=== PATIENT | male | born 1960 | race Caucasian/White ===

== ENCOUNTER 2016-07-02 09:04 | Inpatient (IN) | payer OTHER ==
[~2016-07-02] VITALS: Ht 180.3 cm; Wt 85.0 kg
[2016-07-02] VITALS (12 sets, daily range): BP systolic 74–147; BP diastolic 52–97; PULSE 87–118; RESP 15–20; TEMP 97.6–97.7; O2SAT 96–100
[~2016-07-02 09:04] MED LIST: ARTIDRO EACH EYE; CLON1 PO; DULE100A INH; GABA300C3 PO; KCL20 PO; MAGN400T PO; PRAV20TA PO; PROT40TA PO; SERO300T PO; SYNT125T PO; VENTAER INH
[2016-07-02 09:31] LABS: AUTOMATED NEUTROPHIL # 3.2 TH/MM3 (1.8-7.7); BASOPHIL # 0.1 TH/MM3 (0-0.2); BASOPHIL % 1.2 % (0.0-2.0); EOSINOPHIL # 0.2 TH/MM3 (0-0.4); EOSINOPHIL % 2.5 % (0.0-4.0); HEMATOCRIT 36.9 % (39.0-51.0); LYMPH % 52.7 % (9.0-44.0); LYMPHOCYTE # 5.1 TH/MM3 (1.0-4.8); MEAN CELL VOLUME 109.6 FL (80.0-100.0); MEAN CORPUSCULAR HEMOGLOBIN 37.9 PG (27.0-34.0); MEAN CORPUSCULAR HGB CONC 34.6 % (32.0-36.0); MONO % 10.3 % (0.0-8.0); NEUT % 33.3 % (16.0-70.0); PLATELET COUNT 233 TH/MM3 (150-450); RED BLOOD COUNT 3.37 MIL/MM3 (4.50-5.90); RED CELL DISTRIBUTION WIDTH 15.8 % (11.6-17.2); WHITE BLOOD COUNT 9.7 TH/MM3 (4.0-11.0)
[2016-07-02 09:39] LABS: HEMO FLAGS AUTO DIFF
--- NOTE | 2016-07-02 09:56 | RADRPT ---
EXAM DATE/TIME: 07/02/2016 09:29 [facility] COMPARISON: CHEST SINGLE AP, November 08, 2015, 14:31. INDICATIONS : Syncopal episode. Patient states he has fainted several times in the last several day. MEDICAL HISTORY : Asthma. SURGICAL HISTORY : None. ENCOUNTER: Initial ACUITY: 3 days PAIN SCORE: 0/10 LOCATION: Bilateral chest FINDINGS: A single view of the chest demonstrates no focal consolidation. Minimal linear atelectasis or scarrin g at the bases. Tortuous aorta. Normal heart size. No pneumothorax. CONCLUSION: 1. Minimal linear scarring or atelectasis at the lung bases. Exam otherwise unremarkable. Sarwat Soliman MD on July 02, 2016 at 9:53 Board Certified Radiologist. This report was verified electronically.
[2016-07-02 09:58] LABS: ANION GAP 21 MEQ/L (5-15); BICARBONATE 15.8 MEQ/L (21.0-32.0); BLOOD UREA NITROGEN 10 MG/DL (7-18); CHLORIDE 99 MEQ/L (98-107); CREATINE KINASE 131 U/L (39-308); GLOMERULAR FILTRATION RATE 68 ML/MIN (>89); SODIUM (NA) 136 MEQ/L (136-145)
[2016-07-02 10:01] LABS: POTASSIUM 2.9 MEQ/L (3.5-5.1)
[2016-07-02 10:10] LABS: BANDS 1 % (0-6); BASOPHILS 2 % (0-2); EOSINOPHILS 1 % (0-4); MYELOCYTES 1 % (0-0); PLATELET ESTIMATE SMEAR NORMAL (NORMAL); POLYS (SEG NEUTROPHILS) 39 % (16-70); SCAN/DIFF FINAL DIFF MANUAL; WBC DIFF SAMPLE 100
[2016-07-02 10:11] LABS: PLATELET MORPHOLOGY NORMAL (NORMAL)
[2016-07-02 10:22] LABS: CKMB 1.1 NG/ML (0.5-3.6)
[2016-07-02] MEDS ORDERED: SODIUM CHLOR 0.9% 1000 ML INJ 1,000 ML IV ONE ×3 (10:45→16:15)
--- NOTE | 2016-07-02 10:45 | PD ---
HPI Chief Complaint: Chest Pain Time Seen by Provider: 10:38 Travel History International Travel<30 days: No Contact w/Intl Traveler<30days: No Traveled to known affect area: No History of Present Illness HPI The patient is a 55-year-old male who presents to the emergency department for syncope and shortness of breath. The patient has a history of multiple syncopal episodes of the last several months where he states he will stand up, become dizzy, and fall forward. The patient states he did fall for one time resulting in a laceration to the frontal forehead which required Steri- Strips. The patient does think he loses consciousness prior to falling to the ground. The patient states his symptoms are worse with standing upright, he was somewhat became dizzy, short of breath, and will have a syncopal episode. He does note his symptoms are improved at rest. The patient also states his chest will "pound "and feel like his heart is going to "jump out of my chest ". The patient denies any known history of arrhythmias, pulmonary embolism, or aortic stenosis. The patient with the [facility] earlier today who referred him to the emergency department. The patient denies any known history of coronary artery disease. The patient's symptoms are moderate, worse with standing upright and ambulating, and slightly alleviated at rest. PFSH Past Medical History Cardiovascular Problems: No High Cholesterol: Yes Diminished Hearing: No Musculoskeletal: No Neurologic: No Respiratory: Yes (ASTHMA) Thyroid Disease: Yes Social History Alcohol Use: Yes (DAILY ETOH PER PT) Tobacco Use: No Substance Use: No (PT DENIES) Allergies-Medications (Allergen,Severity, Reaction): Coded Allergies: No Known Allergies (Unverified , 07/02/16) Reported Meds & Prescriptions Reported Meds & Active Scripts Active Reported Benztropine (Benztropine Mesylate) 2 Mg Tab 2 Mg PO HS Clonazepam 1 Mg Tab 1 Mg PO DAILY Quetiapine Fumarate ER (Quetiapine Fumarate) 150 Mg Tab Milk Thistle 175 Mg Cap Gabapentin 400 Mg Cap 400 Cap PO TID Omeprazole 20 Mg Tab 20 Mg PO DAILY Levothyroxine (Levothyroxine Sodium) 125 Mcg Tab 125 Mcg PO DAILY Review of Systems Except as stated in HPI: all other systems reviewed are Neg General / Constitutional: No: Fever HENT: Positive: Lightheadedness Cardiovascular: Positive: Tachycardia, Syncope, Dyspnea on exertion, No: Chest Pain or Discomfort, Diaphoresis Respiratory: Positive: Shortness of Breath Gastrointestinal: No: Nausea, Vomiting, Abdominal Pain Musculoskeletal: No: Weakness Neurologic: Positive: Dizziness, Syncope, Tremor, No: Weakness, Change in Mentation Psychiatric: Positive: Mood Disorder Physical Exam Narrative GENERAL: Awake, alert, 55-year-old male who appears his stated age and is in no acute respiratory distress. SKIN: Warm and dry. Multiple tattoos noted. HEAD: Atraumatic. Normocephalic. EYES: Pupils equal and round. No scleral icterus. No injection or drainage. ENT: No nasal bleeding or discharge. Mucous membranes pink and moist. NECK: Trachea midline. No JVD. CARDIOVASCULAR: Regular, tachycardic with a heart rate of 110. No audible murmurs. RESPIRATORY: No accessory muscle use. Clear to auscultation. Breath sounds equal bilaterally. GASTROINTESTINAL: Abdomen soft, non-tender, nondistended. No rebound tenderness. MUSCULOSKELETAL: No obvious deformities. No clubbing. No cyanosis. No edema. NEUROLOGICAL: Awake and alert. No obvious cranial nerve deficits. Motor grossly within normal limits. Normal speech. Nonfocal. PSYCHIATRIC: Appropriate mood and affect; insight and judgment normal. Data Data Last Documented VS Vital Signs Date Time Temp Pulse Resp B/P Pulse Ox O2 Delivery O2 Flow Rate FiO2 07/02/16 11:16 106 17 130/92 98 Room Air 07/02/16 09:07 97.7 Orders Electrocardiogram (07/02/16 09:13) Complete Blood Count With Diff (07/02/16 09:13) Basic Metabolic Panel (Bmp) (07/02/16 09:13) Ckmb (Isoenzyme) Profile (07/02/16 09:13) Troponin I (07/02/16 09:13) Chest, Single Ap (07/02/16 09:13) Iv Access Insert/Monitor (07/02/16 09:13) Ecg Monitoring (07/02/16 09:13) Oxygen Administration (07/02/16 09:13) Oximetry (07/02/16 09:13) CKMB (07/02/16 09:20) CKMB% (07/02/16 09:20) Blood Gas Venous (Vbg) (07/02/16 10:38) Lactic Acid (07/02/16 10:38) Beta Hydroxybutyrate (Acetone) (07/02/16 10:38) Thyroid Stimulating Hormone (07/02/16 10:38) Free Thyroxine (T4) (07/02/16 10:38) D-Dimer (07/02/16 10:38) Orthostatic Vital Signs (07/02/16 10:38) Sodium Chlor 0.9% 1000 Ml Inj (Ns 1000 M (07/02/16 10:45) Magnesium (Mg) (07/02/16 10:38) Potassium Chlor 20 Meq Premix (Kcl 20 Me (07/02/16 10:45) Ct Pulmonary Angiogram (07/02/16 ) Sodium Chlor 0.9% 1000 Ml Inj (Ns 1000 M (07/02/16 12:00) Admit Order (Ed Use Only) (07/02/16 12:25) Labs Laboratory Tests Test 07/02/16 07/02/16 07/02/16 09:20 10:59 11:05 White Blood Count 9.7 TH/MM3 Red Blood Count 3.37 MIL/MM3 Hemoglobin 12.8 GM/DL Hematocrit 36.9 % Mean Corpuscular Volume 109.6 FL Mean Corpuscular Hemoglobin 37.9 PG Mean Corpuscular Hemoglobin 34.6 % Concent Red Cell Distribution Width 15.8 % Platelet Count 233 TH/MM3 Mean Platelet Volume 7.3 FL Neutrophils (%) (Auto) 33.3 % Lymphocytes (%) (Auto) 52.7 % Monocytes (%) (Auto) 10.3 % Eosinophils (%) (Auto) 2.5 % Basophils (%) (Auto) 1.2 % Neutrophils # (Auto) 3.2 TH/MM3 Lymphocytes # (Auto) 5.1 TH/MM3 Monocytes # (Auto) 1.0 TH/MM3 Eosinophils # (Auto) 0.2 TH/MM3 Basophils # (Auto) 0.1 TH/MM3 CBC Comment AUTO DIFF Differential Total Cells 100 Counted Neutrophils % (Manual) 39 % Band Neutrophils % 1 % Lymphocytes % 52 % Monocytes % 4 % Eosinophils % 1 % Basophils % 2 % Neutrophils # (Manual) 4.0 TH/MM3 Myelocytes 1 % Differential Comment FINAL DIFF MANUAL Platelet Estimate NORMAL Platelet Morphology Comment NORMAL Red Cell Morphology Comment NORMAL Sodium Level 136 MEQ/L Potassium Level 2.9 MEQ/L Chloride Level 99 MEQ/L Carbon Dioxide Level 15.8 MEQ/L Anion Gap 21 MEQ/L Blood Urea Nitrogen 10 MG/DL Creatinine 1.13 MG/DL Estimat Glomerular Filtration 68 ML/MIN Rate Random Glucose 71 MG/DL Calcium Level 8.8 MG/DL Total Creatine Kinase 131 U/L Creatine Kinase MB 1.1 NG/ML Creatine Kinase MB % 0.8 % Troponin I LESS THAN 0.02 NG/ML Blood Gas Puncture Site NURSE Blood Gas Patient Temperature 98.6 Venous Blood pH 7.38 Venous Blood Partial Pressure 32 mmHg CO2 Venous Blood Partial Pressure 22 mmHg O2 Venous Blood HCO3 18 mmol/L Venous Blood Oxygen Saturation 31 % Venous Blood Oxygen Content 6.0 Vol % Venous Blood Base Excess -5.8 mmol/L Blood Gas Inspired Oxygen 21 % D-Dimer Quantitative (PE/DVT) 2.30 MG/L FEU Lactic Acid Level 4.6 mmol/L Magnesium Level 1.5 MG/DL Free Thyroxine 0.69 NG/DL Thyroid Stimulating Hormone 27.200 uIU/ML 3rd Gen B-Hydroxybutyrate 3.68 MMOL/L MDM Medical Decision Making Medical Screen Exam Complete: Yes Emergency Medical Condition: Yes Medical Record Reviewed: Yes Interpretation(s) Laboratory Tests Test 07/02/16 07/02/16 07/02/16 09:20 10:59 11:05 White Blood Count 9.7 TH/MM3 Red Blood Count 3.37 MIL/MM3 Hemoglobin 12.8 GM/DL Hematocrit 36.9 % Mean Corpuscular Volume 109.6 FL Mean Corpuscular Hemoglobin 37.9 PG Mean Corpuscular Hemoglobin 34.6 % Concent Red Cell Distribution Width 15.8 % Platelet Count 233 TH/MM3 Mean Platelet Volume 7.3 FL Neutrophils (%) (Auto) 33.3 % Lymphocytes (%) (Auto) 52.7 % Monocytes (%) (Auto) 10.3 % Eosinophils (%) (Auto) 2.5 % Basophils (%) (Auto) 1.2 % Neutrophils # (Auto) 3.2 TH/MM3 Lymphocytes # (Auto) 5.1 TH/MM3 Monocytes # (Auto) 1.0 TH/MM3 Eosinophils # (Auto) 0.2 TH/MM3 Basophils # (Auto) 0.1 TH/MM3 CBC Comment AUTO DIFF Differential Total Cells 100 Counted Neutrophils % (Manual) 39 % Band Neutrophils % 1 % Lymphocytes % 52 % Monocytes % 4 % Eosinophils % 1 % Basophils % 2 % Neutrophils # (Manual) 4.0 TH/MM3 Myelocytes 1 % Differential Comment FINAL DIFF MANUAL Platelet Estimate NORMAL Platelet Morphology Comment NORMAL Red Cell Morphology Comment NORMAL Sodium Level 136 MEQ/L Potassium Level 2.9 MEQ/L Chloride Level 99 MEQ/L Carbon Dioxide Level 15.8 MEQ/L Anion Gap 21 MEQ/L Blood Urea Nitrogen 10 MG/DL Creatinine 1.13 MG/DL Estimat Glomerular Filtration 68 ML/MIN Rate Random Glucose 71 MG/DL Calcium Level 8.8 MG/DL Total Creatine Kinase 131 U/L Creatine Kinase MB 1.1 NG/ML Creatine Kinase MB % 0.8 % Troponin I LESS THAN 0.02 NG/ML Blood Gas Puncture Site NURSE Blood Gas Patient Temperature 98.6 Venous Blood pH 7.38 Venous Blood Partial Pressure 32 mmHg CO2 Venous Blood Partial Pressure 22 mmHg O2 Venous Blood HCO3 18 mmol/L Venous Blood Oxygen Saturation 31 % Venous Blood Oxygen Content 6.0 Vol % Venous Blood Base Excess -5.8 mmol/L Blood Gas Inspired Oxygen 21 % D-Dimer Quantitative (PE/DVT) 2.30 MG/L FEU Lactic Acid Level 4.6 mmol/L Magnesium Level 1.5 MG/DL Free Thyroxine 0.69 NG/DL Thyroid Stimulating Hormone 27.200 uIU/ML 3rd Gen B-Hydroxybutyrate 3.68 MMOL/L Last Impressions Chest X-Ray 07/02/16 0913 Signed Impressions: Service Date/Time: Saturday, July 02, 2016 09:29 - CONCLUSION: 1. Minimal linear scarring or atelectasis at the lung bases. Exam otherwise unremarkable. Sarwat Soliman MD CT Angiography 07/02/16 0000 Signed Impressions: Service Date/Time: Saturday, July 02, 2016 12:26 - CONCLUSION: 1. No pulmonary embolus identified. 2. There is an area of linear atelectasis or scarring at the right lung base. Devon Ramachandran MD Differential Diagnosis Differential diagnosis includes arrhythmia, aortic stenosis, vasovagal syncope, orthostatic hypotension, dehydration, pulmonary embolism. Narrative Course IV was established, labs are drawn and sent, and the patient was placed on cardiac telemetry monitoring and continuous pulse oximetry monitoring. The patient was noted be tachycardic, no hypoxia, however, does have shortness of breath is worse with exertion. Therefore, d-dimer was sent to lab. EKG was ordered and interpreted. Chest x-ray was ordered. Chest x-ray was unremarkable. Orthostatic vital signs were obtained and the patient was administered 1 L of IV fluids. The patient had an anion gap on basic metabolic profile with low CO2, therefore, lactic acid and beta hydroxy were sent to lab. VBG was obtained. The ABG reveals no obvious acidosis. Patient's orthostatics were positive. D-dimer is positive for greater than 2, therefore, CT pulmonary angiogram was ordered. The patient's lactic acid is elevated at 4.6. TSH is greater than 22 with a low free T4, consistent with hypothyroidism. Patient's beta hydroxy is positive just greater than 3, however , I do not suspect DKA. Patient's primary physician is the [facility], therefore , the on-call medical service, the residents, were paged for admission 11:[address] pulmonary angiogram was negative for PE. Patient's orthostatics are positive, the patient was ordered a second liter of IV fluids. The patient will be admitted. Physician Communication Physician Communication The on-call medical service was paged for admission. I discussed the patient with the resident team who agreed with admission to Dr. Liang. Diagnosis Primary Impression: Syncope Qualified Code: R55 - Syncope, unspecified syncope type Additional Impressions: Orthostatic hypotension Hypothyroidism Qualified Code: E03.9 - Hypothyroidism, unspecified type Lactic acidosis Admitting Information Admitting Physician Requests: Admit Condition: Stable Blanco Alejo MD Jul 02, 2016 10:45
[2016-07-02 11:08] LABS: BLOOD GAS VENOUS BASE EXCESS -5.8 mmol/L (-2-2); BLOOD GAS VENOUS HCO3 18 mmol/L (22-26); BLOOD GAS VENOUS O2 HGB SAT 31 % (70-76); BLOOD GAS VENOUS PCO2 32 mmHg (44-48); BLOOD GAS VENOUS pH 7.38 (7.360-7.400); TEMP CORR TO 98.6
[2016-07-02 11:09] LABS: BLOOD GAS VENOUS PO2 22 mmHg (35-40); CRITICAL VALUE YES; DRAW SITE NURSE; FIO2 21 %; STAT YES
[2016-07-02] MEDS: POTASSIUM CHLOR 20 MEQ PREMIX 100 ML IV SCH ×2 (11:39→13:40)
[2016-07-02] MEDS ORDERED: CLON1TAB PO (11:50)
[2016-07-02] MEDS ORDERED: MILK175C6 (11:50)
[2016-07-02] MEDS ORDERED: GABA400C5 PO (11:50)
[2016-07-02] MEDS ORDERED: OMEP20TA PO (11:50)
[2016-07-02] MEDS ORDERED: LEVO125T4 PO (11:50)
[2016-07-02] MEDS ORDERED: QUET-87 (11:50)
[2016-07-02] MEDS ORDERED: BENZ2TAB PO (11:51)
[2016-07-02 11:54] LABS: BETA-HYDROXYBUTYRATE 3.68 MMOL/L (0.00-0.39); FREE T4 0.69 NG/DL (0.76-1.46); MAGNESIUM 1.5 MG/DL (1.5-2.5)
--- NOTE | 2016-07-02 12:23 | EKG ---
Date Performed: 07/02/2016 Time Performed: 10:07:43 PTAGE: 55 years EKG: SINUS TACHYCARDIA ABNORMAL RHYTHM ECG PREVIOUS TRACING : 11/08/2015 14.45 DOCTOR: Owen Shah Interpretating Date/Time 07/02/2016 12:20:18
[2016-07-02] MEDS ORDERED: IOHEXOL 350 MG/ML 10 ML VIAL (for RAD DIAG) IV ONE (12:55)
--- NOTE | 2016-07-02 13:05 | RADRPT ---
EXAM DATE/TIME: 07/02/2016 12:26 [facility] COMPARISON: CT ABDOMEN & PELVIS W/O CONTRAST, November 08, 2015, 15:50. INDICATIONS : Abnormal heart rate, syncope and shortness of breath for four months IV CONTRAST: 50 cc Omnipaque 350 (iohexol) IV RADIATION DOSE: 11.73 CTDIvol (mGy) MEDICAL HISTORY : Thyroid disease SURGICAL HISTORY : None. ENCOUNTER: Initial ACUITY: 4 - 6 months PAIN SCALE: 0/10 LOCATION: chest TECHNIQUE: Volumetric scanning of the chest was performed using a pulmonary embolism protocol MIP images were re constructed. Using automated exposure control and adjustment of the mA and/or kV according to patien t size, radiation dose was kept as low as reasonably achievable to obtain optimal diagnostic quality images. FINDINGS: PULMONARY ARTERIES: No filling defects are seen in the pulmonary arteries through the segmental level. LUNGS: The examination demonstrates a moderate-sized area of linear atelectasis in the right lower lobe. The pulmonary parenchyma is otherwise clear. PLEURAE: There is no pleural thickening or pleural effusion. MEDIASTINUM: There is good visualization of the great vessels of the middle mediastinum. No evidence of mediastin al or hilar adenopathy/mass. MUSCULOSKELETAL: Within normal limits for patient age. MISCELLANEOUS: The visualized upper abdominal organs demonstrate no acute abnormality. CONCLUSION: 1. No pulmonary embolus identified. 2. There is an area of linear atelectasis or scarring at the right lung base. Devon Ramachandran MD on July 02, 2016 at 13:01 Board Certified Radiologist. This report was verified electronically.
--- NOTE | 2016-07-02 14:02 | HHI.HP ---
[facility] Service Family Medicine Primary Care Physician [facility] Admission Diagnosis syncope, metabolic acidosis, orthostatic hypotension Diagnoses: International Travel<30 Days: No Contact w/Intl Traveler<30days: No Known Affected Area: No History of Present Illness Mr. Dhaliwal is a 55 yo M with PMH of psychiatric disease (bipolar disorder, PTSD , hypothyroidism, "tremor" (presumably lithium induced) who presents with several months of worsening shortness of breath with exertion, dizziness and rapid heart rate upon standing from a sitting position, and weakness. Patient reports that the symptoms have been gradually worsening over the past 4 months, and that he was advised to seek further workup by [facility] so presented to [facility] today. Patient reports 1 episode of prior syncope several years [or months per ED documentation; will clarify with patient] prior where he fell shortly after standing at his bedside, resulting in him lacerating his forehead on countertop. Patient did not report any cerebral disease from this fall. Patient is not aware of any prior cardiac disease, and states that he had his last echo approximately 1 year ago (patient does not report knowing results). Patient reports that his dizziness and fast heart rate occur when standing. Patient reports significant shortness of breath when walking; having to rest every few steps and walking up the stairs. Patient feels that his gait is abnormal and walking and that he has increased weakness in his lower extremities. Patient states that he does not feel this weakness when lying supine in bed. Patient also reports losing 10 lbs due to lack of oral intake over the past month. Patient reports taking frequently; as much as 6 drinks every other night. No reported recent illnesses, fevers/chills, nasuea, constipation/diarrhea, dysuria, or chest pain. Patient states he may have had prior seizure vs tremor. Regarding patient's tremor, he states that he previously took lithium ~2 years prior; patient reports shaking started after this. Interval History: Patient to have positive orthostatics in ED; placed on IV fluids. BMP with elevated anion gap and low CO2; ABG demonstrative of low CO2 (32)/HCO3 (18) and normal pH (7.38). TSH (27.2) elevated and T4 low (0.69); lactic acid 4.6, B hydroxybutyrate mildly elevated. Patient tachycardic; CTA obtained but found to be negative. (Ross Leos MD R2) Review of Systems Endocrine: DENIES: Polyuria Respiratory: COMPLAINS OF: Shortness of breath, DENIES: Cough Cardiovascular: COMPLAINS OF: Palpitations, DENIES: Chest pain Gastrointestinal: DENIES: Constipation, Diarrhea Genitourinary: DENIES: Dysuria Musculoskeletal: COMPLAINS OF: Joint pain (less active) Integumentary: DENIES: Pruritus Hematologic/lymphatic: DENIES: Bruising Neurologic: COMPLAINS OF: Abnormal gait, Tremor, DENIES: Headache Psychiatric: DENIES: Anxiety, Confusion (Ross Leos MD R2) Past Family Social History Past Medical History Patient reports receiving healthcare at [place]: "tremor" (presumably [place] induced) asthma- not significant per patient Bipolar disorder PTSD Hypothyroidism prior seizures vs. tremors Past Surgical History L trigger finger release L eye trauma R thumb tendon release Reported Medications Per patient med rec: trazodone, clonazepam, benztropine, Seroquel 450mg at night , levothyroxine 0.125, milk thistle, omeprazole 20mg, gabapentin Reported Meds & Active Scripts Active Reported Benztropine (Benztropine Mesylate) 2 Mg Tab 2 Mg PO HS Clonazepam 1 Mg Tab 1 Mg PO DAILY Quetiapine Fumarate ER (Quetiapine Fumarate) 150 Mg Tab Milk Thistle 175 Mg Cap Gabapentin 400 Mg Cap 400 Cap PO TID Omeprazole 20 Mg Tab 20 Mg PO DAILY Levothyroxine (Levothyroxine Sodium) 125 Mcg Tab 125 Mcg PO DAILY (Ross Leos MD R2) Allergies: Coded Allergies: No Known Allergies (Unverified , 07/02/16) Family History mother- unspecified CAD Social History Lives alone; 3[address] story apt. No smoking for ~20 years Alcohol: Inconsistent intake reported to multiple providers; patient reported 1- 2 drinks a night to ~6 drinks every other night Illicit drugs: None reported (Ross Leos MD R2) Physical Exam Vital Signs Vital Signs Date Time Temp Pulse Resp B/P Pulse Ox O2 Delivery O2 Flow Rate FiO2 07/02/16 11:16 106 17 130/92 98 Room Air 07/02/16 10:45 99 17 130/82 105 18 122/84 105 20 78/52 20 74/54 07/02/16 10:41 103 17 98 Room Air 07/02/16 10:39 96 18 147/97 98 Room Air 07/02/16 10:39 99 Room Air 07/02/16 10:37 98 Room Air 07/02/16 09:07 97.7 118 18 109/80 97 Room Air Physical Exam GENERAL: Patient appears comfortable, in no acute distress. SKIN: Warm and dry, no rashes appreciated EYES: No scleral icterus, injection, or drainage. PERRLA. EOMI. HENT: Head: Normocephalic. Mouth: No lesions appreciated. Pharynx: Benign exam without erythema or exudate. NECK: No appreciated lymphadenopathy or thyromegaly CARDIOVASCULAR: Mild tachycardia; regular rhythm without murmurs. Normal peripheral perfusion in lower extremities. RESPIRATORY: Normal respiratory rate. Lungs clear to auscultation bilaterally. GASTROINTESTINAL: Abdomen soft, nondistended, nontender. Bowel sounds normal. MUSCULOSKELETAL: No lower extremity swelling. No appreciated calf asymmetry. NEURO/PSYCH: Awake, alert, and oriented. Cranial nerves intact. Normal sensory function peripherally; normal strength bilaterally. Cerebellar testing (Finger/ nose and heel/rai) testing normal. Gait not inspected. Laboratory Laboratory Tests Test 07/02/16 07/02/16 07/02/16 09:20 10:59 11:05 White Blood Count 9.7 Red Blood Count 3.37 Hemoglobin 12.8 Hematocrit 36.9 Mean Corpuscular Volume 109.6 Mean Corpuscular Hemoglobin 37.9 Mean Corpuscular Hemoglobin 34.6 Concent Red Cell Distribution Width 15.8 Platelet Count 233 Mean Platelet Volume 7.3 Neutrophils (%) (Auto) 33.3 Lymphocytes (%) (Auto) 52.7 Monocytes (%) (Auto) 10.3 Eosinophils (%) (Auto) 2.5 Basophils (%) (Auto) 1.2 Neutrophils # (Auto) 3.2 Lymphocytes # (Auto) 5.1 Monocytes # (Auto) 1.0 Eosinophils # (Auto) 0.2 Basophils # (Auto) 0.1 CBC Comment AUTO DIFF Differential Total Cells 100 Counted Neutrophils % (Manual) 39 Band Neutrophils % 1 Lymphocytes % 52 Monocytes % 4 Eosinophils % 1 Basophils % 2 Neutrophils # (Manual) 4.0 Myelocytes 1 Differential Comment FINAL DIFF MANUAL Platelet Estimate NORMAL Platelet Morphology Comment NORMAL Red Cell Morphology Comment NORMAL Sodium Level 136 Potassium Level 2.9 Chloride Level 99 Carbon Dioxide Level 15.8 Anion Gap 21 Blood Urea Nitrogen 10 Creatinine 1.13 Estimat Glomerular Filtration 68 Rate Random Glucose 71 Calcium Level 8.8 Total Creatine Kinase 131 Creatine Kinase MB 1.1 Creatine Kinase MB % 0.8 Troponin I LESS THAN 0.02 Blood Gas Puncture Site NURSE Blood Gas Patient Temperature 98.6 Venous Blood pH 7.38 Venous Blood Partial Pressure 32 CO2 Venous Blood Partial Pressure 22 O2 Venous Blood HCO3 18 Venous Blood Oxygen Saturation 31 Venous Blood Oxygen Content 6.0 Venous Blood Base Excess -5.8 Blood Gas Inspired Oxygen 21 D-Dimer Quantitative (PE/DVT) 2.30 Lactic Acid Level 4.6 Magnesium Level 1.5 Free Thyroxine 0.69 Thyroid Stimulating Hormone 27.200 3rd Gen B-Hydroxybutyrate 3.68 (Ross Leos MD R2) Result Diagram: 07/02/1620 07/02/16919 Imaging Last Impressions Chest X-Ray 07/02/16912 Signed Impressions: Service Date/Time: Saturday, July 02, 2016 09:29 - CONCLUSION: 1. Minimal linear scarring or atelectasis at the lung bases. Exam otherwise unremarkable. Sarwat Soliman MD CT Angiography 07/02/16 0000 Signed Impressions: Service Date/Time: Saturday, July 02, 2016 12:26 - CONCLUSION: 1. No pulmonary embolus identified. 2. There is an area of linear atelectasis or scarring at the right lung base. Devon Ramachandran MD (Ross Leos MD R2) Assessment and Plan Assessment and Plan Mr. Dhaliwal is a 55 yo male with: Code Status Full Code (Ross Leos MD R2) Attending Attestation The patient has been seen and examined. The chart and all resident notes have been reviewed. I agree that inpatient care is appropriate and that a two midnight stay is expected for the reasons documented in the resident history and physical. I have discussed this with the resident and certify the resident s order for inpatient admission. (Rona Liang MD) Problem List: (1) Shortness of breath Status: Acute Plan: Impression: Several months of worsening shortness of breath on exertion. Mild anemia (Hgb 12.8) Positive orthostatic vitals in ED. Lungs clear to auscultation; saturating normal on room air D-dimer 2.3; CTA did not show PE We'll check echocardiography to assess cardiac output Continue to monitor vitals, O2 sats (2) Metabolic acidosis, increased anion gap (IAG) Status: Acute Plan: Impression: Unclear etiology. Patient with history of alcohol consumption ; no known diabetes. Anion gap 21 on admission; CO2 15.8. VBG on admission: pH 7.38, CO2 32, HCO3 18 Lactic acid 4.6 on admission B hydroxybutyrate 3.68 -Will check ABG- pH 7.44, CO2 27, HCO3 18 -Will check plasma osmolality- 289 -Will trend lactic acid- 1.4 on repeat check -Check for potential affecting metabolites- Aspirin 5.7, Ethyl alcohol 33, Acetaminophen <2. -Since resolving, will continue IV fluid supplementation and monitor (3) Alcohol abuse Status: Chronic Plan: Impression: Chronic alcohol use; unclear total usage since history per patient seems to have varied MCV 109.6; patient reports poor nutrition -[facility] protocol -Electrolyte replacement -Will check B12, folate, thiamine levels (4) Orthostatic hypotension Status: Acute Plan: Impression: Unclear etiology. Orthostatic vitals in ED: Supine 130/82, standing 78/52 No known peripheral/autonomic neuropathy risk factors Patient on Seroquel and Trazodone -Continue IV fluid supplementation at maintenance NS -s/p3 L NS boluses -Hold potentially affecting medications -Hold home Seroquel -Consider changing Trazodone since also could be a factor -Continue to monitor orthostatic VS -Based on responsiveness, will consider Fludrocortisone and/or Midodrine -Since remote history of syncope, will also check Carotid US (5) Psychiatric disorder Status: Chronic Plan: Impression: Patient reports history of Bipolar disorder and PTSD; currently controlled with Seroquel, trazodone, and gabapentin. Patient reports history of lithium treatment and subsequent tremor -Continue Benztropine for tremor disorder -Continue home Trazodone -Hold home Seroquel for suspected contribution to orthostatic hypotension (6) Hypothyroidism Status: Chronic Plan: Impression: History of hypothyroidism TSH 27.2, free T4 0.69 on admission -Will increase Levothyroxine by 12.5 mcg to 137.5 mcg (7) DVT Prophylaxis Status: Acute Plan: -Bilateral SCD's -Lovenox 40mg daily (8) Fluids, Electrolytes, and Nutrition Status: Acute Plan: Fluids: Continue NS at 120ml/hr -s/p 3 L NS Electrolytes: Monitor and replete as needed Nutrition: Regular basic diet (Ross Leos MD R2) Physician Certification 2 Midnight Certification Type: Admission for Inpatient Services Order for Inpatient Services The services are ordered in accordance with Medicare regulations or non- Medicare payer requirements, as applicable. In the case of services not specified as inpatient-only, they are appropriately provided as inpatient services in accordance with the 2-midnight benchmark. Estimated LOS (days): 3 days is the estimated time the patient will need to remain in the hospital, assuming treatment plan goals are met and no additional complications. Post-Hospital Plan: Home (Ross Leos MD R2) Problem Qualifiers (1) Hypothyroidism: Qualified Code: E03.9 - Hypothyroidism, unspecified type Ross Leos MD R2 Jul 02, 2016 14:02 Rona Liang MD Jul 03, 2016 16:42
[2016-07-02] MEDS ORDERED: LORazepam 2 MG TAB PO PRN (14:45)
[2016-07-02] MEDS ORDERED: ACETAMINOPHEN 325 MG TAB PO PRN (14:45)
[2016-07-02] MEDS ORDERED: NALOXONE HCL 0.4 MG/ML AMP IV PRN (14:45)
[2016-07-02] MEDS ORDERED: SODIUM CHLORIDE 0.9% FLUSH 5 ML FLUSH FLUSH PRN (14:45)
[2016-07-02] MEDS ORDERED: LORazepam 1 MG TAB PO PRN (14:45)
[2016-07-02] MEDS ORDERED: LORazepam 2 MG/ML VIAL IV PUSH PRN ×4 (14:45)
[2016-07-02] MEDS ORDERED: ONDANSETRON HCL 4 MG/2 ML VIAL IVP PRN (14:45)
[2016-07-02] MEDS ORDERED: FLUMAZENIL 1 MG/10 ML VIAL IV PUSH PRN (14:45)
[2016-07-02 15:25] LABS: BLOOD GAS BASE EXCESS -5.4 mmol/L (-2-2); BLOOD GAS CARBOXYHEMOGLOBIN 2.1 % (0-4); BLOOD GAS HCO3 18 mmol/L (22-26); BLOOD GAS METHEMOGLOBIN 1.4 % (0-2); BLOOD GAS O2 HGB SATURATION 94 % (90-100); BLOOD GAS OXYGEN CONTENT 14.6 Vol % (12.0-20.0); BLOOD GAS PCO2 27 mmHg (38-42); BLOOD GAS PO2 80 mmHG (61-120); CRITICAL VALUE NO; DRAW SITE RT RADIAL; FIO2 21 %; NUMBER OF ARTERIAL PUNCTURES 1; OXYGEN DEVICE R; STAT NO; TEMP CORR TO 98.6; ULNAR PULSE PRESENT
[2016-07-02 15:50] LABS: ACETAMINOPHEN LESS THAN 2.0 MCG/ML (10.0-30.0)
[2016-07-02 16:27] LABS: BICARBONATE 20.7 MEQ/L (21.0-32.0); POTASSIUM 3.3 MEQ/L (3.5-5.1)
--- NOTE | 2016-07-02 16:29 | HHI.FPPN ---
Subjective Subjective Patient seen and examined. Case discussed and reviewed. Please refer to resident H&P for further details regarding HPI, ROS, PMH, SurgHx , Fh and SocHx. In summary, patient is a 55yoM presenting for progressively more frequent syncopal episodes. This happens every time he tries to get up, now multiple times per day. He had an episode earlier today prior to presentation. He notes a racing heart and has to catch his breath prior to these episodes. NO chest pain, no urinary incontinence, tongue biting. He reports feeling normal at rest or sitting. [facility] Objective Objective Last Impressions Chest X-Ray 07/02/16 0913 Signed Impressions: Service Date/Time: Saturday, July 02, 2016 09:29 - CONCLUSION: 1. Minimal linear scarring or atelectasis at the lung bases. Exam otherwise unremarkable. Sarwat Soliman MD CT Angiography 07/02/16 0000 Signed Impressions: Service Date/Time: Saturday, July 02, 2016 12:26 - CONCLUSION: 1. No pulmonary embolus identified. 2. There is an area of linear atelectasis or scarring at the right lung base. Devon Ramachandran MD Laboratory Tests - Abnormals Test 07/02/16 07/02/16 07/02/16 07/02/16 09:20 10:59 11:05 15:20 Red Blood Count 3.37 MIL/MM3 Hemoglobin 12.8 GM/DL Hematocrit 36.9 % Mean Corpuscular Volume 109.6 FL Mean Corpuscular Hemoglobin 37.9 PG Lymphocytes (%) (Auto) 52.7 % Monocytes (%) (Auto) 10.3 % Lymphocytes # (Auto) 5.1 TH/MM3 Monocytes # (Auto) 1.0 TH/MM3 Lymphocytes % 52 % Myelocytes 1 % Potassium Level 2.9 MEQ/L Carbon Dioxide Level 15.8 MEQ/L Anion Gap 21 MEQ/L Estimat Glomerular Filtration 68 ML/MIN Rate Random Glucose 71 MG/DL Troponin I LESS THAN 0.02 NG/ML Venous Blood Partial Pressure 32 mmHg CO2 Venous Blood Partial Pressure 22 mmHg O2 Venous Blood HCO3 18 mmol/L Venous Blood Oxygen Saturation 31 % Venous Blood Oxygen Content 6.0 Vol % Venous Blood Base Excess -5.8 mmol/L D-Dimer Quantitative (PE/DVT) 2.30 MG/L FEU Lactic Acid Level 4.6 mmol/L Free Thyroxine 0.69 NG/DL Thyroid Stimulating Hormone 27.200 uIU/ML 3rd Gen Acetaminophen Level LESS THAN 2.0 MCG/ML Ethyl Alcohol Level 33 MG/DL B-Hydroxybutyrate 3.68 MMOL/L Blood Gas HCO3 18 mmol/L Blood Gas Base Excess -5.4 mmol/L Arterial Blood pH 7.44 Arterial Blood Partial 27 mmHg Pressure CO2 Blood Gas Hemoglobin 11.0 G/DL Vital Signs 07/02/16 07/02/16 07/02/16 07/02/16 09:07 10:37 10:39 10:39 Temp 97.7 Pulse 118 96 Resp 18 18 B/P 109/80 147/97 Pulse Ox 97 98 99 98 O2 Delivery Room Air Room Air Room Air Room Air 07/02/16 07/02/16 07/02/16 07/02/16 10:41 10:45 11:16 14:09 Pulse 103 99 106 102 105 105 Resp 17 17 17 18 18 20 20 B/P 130/82 130/92 113/82 122/84 78/52 74/54 Pulse Ox 98 98 99 O2 Delivery Room Air Room Air Room Air 07/02/16 16:04 Pulse 98 Resp 17 B/P 98/68 Pulse Ox 96 O2 Delivery Room Air Physical exam GENERAL: wdwn male, lying in bed, NAD SKIN: Warm and dry. No rashes or lesions HEAD: Normocephalic. AT EYES: No scleral icterus. No injection or drainage. ENT: OP clear. MMM. No evidence of tongue biting, buccal mucosal damage NECK: Supple, trachea midline. No JVD or lymphadenopathy. CARDIOVASCULAR: Tachycardic rate and regular rhythm without audible murmurs, gallops, or rubs. RESPIRATORY: Breath sounds equal and clear to auscultation bilaterally. No accessory muscle use. GASTROINTESTINAL: Abdomen soft, non-tender, nondistended. No rebound. Normal active BS MUSCULOSKELETAL: No cyanosis, or edema. No calf tenderness. BACK: Nontender without obvious deformity. No CVA tenderness. NEURO: Awake and alert. Normal speech. Motor and sensation intact and equal bilaterally. Assessment Assessment 55yoM admitted with: Lactic acidosis with anion gap Severe hypokalemia Severe Orthostatic hypotension Tachycardia Hypothyroidism, severe Bipolar disorder Anxiety Tremor PTSD Insomnia PLAN PLAN Serial orthostatic VS q shift IVF resuscitation Carotid ultrasound 2D echo Trend BMP, lactic acid Replete electrolytes as needed Hold quetiapine as possible culprit PT consult Resume other home meds as appropriate Consider neuro consult pending preliminary results Patient seen and examined. Case reviewed and discussed Agree with plan of care as discussed with me and documented in the resident note. Rona Liang MD Jul 02, 2016 16:29
[2016-07-02] MEDS: FOLIC ACID 1 MG TAB PO SCH (16:39)
[2016-07-02] MEDS: THIAMINE HCL 100 MG TAB PO SCH (16:39)
[2016-07-02] MEDS: SODIUM CHLOR 0.9% 1000 ML INJ 1,000 ML IV SCH ×2 (16:40→23:29)
[2016-07-02] MEDS: SODIUM CHLORIDE 0.9% FLUSH 5 ML FLUSH FLUSH SCH (21:00)
[2016-07-02] MEDS: GABAPENTIN 400 MG CAP PO SCH (22:02)
[2016-07-02] MEDS: ENOXAPARIN SODIUM 40 MG/0.4 ML SYRINGE SQ SCH (22:03)
[2016-07-02 23:00] LABS: AMPHETAMINE, URINE NEG (NEG); BARBITURATES, URINE NEG (NEG); COCAINE, URINE NEG (NEG)
[2016-07-02 23:01] LABS: BLOOD, URINE NEG (NEG); COMMENT (UR) CULT NOT INDICATED; CULTURE IF INDICATED CULT NOT INDICATED; GLUCOSE,URINE NEG (NEG); KETONE, URINE 80 mg/dL (NEG); MUCUS URINE FEW /lpf (OCC); NITRITE,URINE NEG (NEG); PH, URINE 6.5 (5.0-8.5); SQUAMOUS EPITHELIAL CELL URINE <1 /hpf (0-5); URINE COLOR YELLOW (YELLW/STRAW)
[2016-07-02] MEDS: clonazePAM 1 MG TAB PO PRN (23:34)
[2016-07-03] VITALS (13 sets, daily range): BP systolic 79–153; BP diastolic 51–89; PULSE 72–95; RESP 15–20; TEMP 96.8–98.3; O2SAT 94–100
[2016-07-03] MEDS: SODIUM CHLOR 0.9% 1000 ML INJ 1,000 ML IV SCH ×2 (03:55→16:02)
[2016-07-03 04:35] LABS: AUTOMATED NEUTROPHIL # 3.2 TH/MM3 (1.8-7.7); BASOPHIL # 0.1 TH/MM3 (0-0.2); EOSINOPHIL # 0.1 TH/MM3 (0-0.4); HEMATOCRIT 31.8 % (39.0-51.0); HEMO FLAGS DIFF FINAL; LYMPHOCYTE # 2.1 TH/MM3 (1.0-4.8); MEAN CELL VOLUME 109.5 FL (80.0-100.0); MEAN CORPUSCULAR HEMOGLOBIN 38.5 PG (27.0-34.0); MEAN CORPUSCULAR HGB CONC 35.2 % (32.0-36.0); MONO % 9.9 % (0.0-8.0); NEUT % 53.1 % (16.0-70.0); PLATELET COUNT 198 TH/MM3 (150-450)
[2016-07-03] MEDS ORDERED: LEVOTHYROXINE SODIUM 125 MCG TAB PO SCH ×2 (06:00)
[2016-07-03] MEDS ORDERED: POTASSIUM CHLORIDE 10 MEQ CONTROLLED RELEASE TAB PO ONE ×2 (08:00→09:30)
[2016-07-03] MEDS: LEVOTHYROXINE SODIUM 112 MCG TAB PO SCH (08:24)
[2016-07-03] MEDS: LEVOTHYROXINE SODIUM 25 MCG TAB PO SCH (08:24)
[2016-07-03] MEDS: SODIUM CHLORIDE 0.9% FLUSH 5 ML FLUSH FLUSH SCH ×2 (09:00→22:40)
[2016-07-03] MEDS: GABAPENTIN 400 MG CAP PO SCH ×3 (09:04→18:32)
[2016-07-03] MEDS: FOLIC ACID 1 MG TAB PO SCH (09:04)
[2016-07-03] MEDS: PANTOPRAZOLE SOD 20 MG DELAYED RELEASE TAB PO SCH (09:04)
[2016-07-03] MEDS: THIAMINE HCL 100 MG TAB PO SCH (09:05)
[2016-07-03] MEDS: MULTIVITAMIN TAB PO SCH (09:24)
[2016-07-03] MEDS: MAGNESIUM SULFATE 1 GM PREMIX 100 ML IV SCH ×2 (11:06→11:28)
--- NOTE | 2016-07-03 11:38 | EKG ---
Date Performed: 07/03/2016 Time Performed: 10:10:59 PTAGE: 55 years EKG: Sinus rhythm NO SIGNIFICANT CHANGE FROM PRIOR ELECTROCARDIOGRAM. PREVIOUS TRACING : 07/02/2016 10.07 DOCTOR: Manoj Terrell Interpretating Date/Time 07/03/2016 11:37:26
--- NOTE | 2016-07-03 12:25 | RADRPT ---
EXAM DATE/TIME: 07/03/2016 11:12 [place] COMPARISON: No previous studies available for comparison. INDICATIONS : Syncope. MEDICAL HISTORY : Hypercholesterolemia. Hypothyroidism. PTSD. Tremors. Palpitation. Asthma. Dyspnea. Bipolar. Joint p ain. SURGICAL HISTORY : Left trigger finger release. Left eye trauma. Right thumb tendon release. ENCOUNTER: Initial ACUITY: 1 day PAIN SCORE: 0/10 LOCATION: Bilateral neck PEAK SYSTOLIC VELOCITIES (cm/sec): ICA/CCA RATIO: Right: 0.9 Left: 0.7 ICA: Right: 63 Left: 54 CCA: Right: 69 Left: 79 ECA: Right: 54 Left: 69 VERTEBRAL: Right: 41 antegrade Left: 37 antegrade Elevated flow velocities and ICA/CCA ratios have been found to correlate with increased degrees of vessel stenosis, calculated as percentage of diameter relative to a normal segment of distal ICA/CCA FINDINGS: RIGHT CAROTID: No significant stenosis is visualized. The waveforms are within normal limits. LEFT CAROTID: No significant stenosis is visualized. The waveforms are within normal limits. VERTEBRAL ARTERIES: Antegrade flow is seen in both vertebral arteries. MISCELLANEOUS: None. CONCLUSION: No evidence of flow-limiting carotid stenosis. Johann Hdez MD on July 03, 2016 at 12:23 Board Certified Radiologist. This report was verified electronically.
--- NOTE | 2016-07-03 14:20 | PD.CONS ---
Provisional Diagnosis Admission Date Jul 02, 2016 at 12:29 [place] I. PTSD, bipolar disorder [place] II. Deferred [place] III. Hypertension, hypothyroidism, [place] IV. No history of PTSD) disorder [place] V. 55 History of Present Illness Service Psychiatry Consult Requested By Reason for Consult Medication adjustment Primary Care Physician [facility] HPI The patient is a 55 y/o man, domiciled along in [place], employed , single, with psychiatric history of PTSD, bipolar disorder, 3 previous psychiatric hospitalizations, previous suicide attempts, he gets his outpatient [facility] care [facility], he is on Seroquel 450 mg daily, and gabapentin 300 mg 3 times a day, medical history of hypertension, hypothyroidism, who presents with several months of worsening shortness of breath with exertion, dizziness and rapid heart rate upon standing from a sitting position, and weakness. Patient reports that the symptoms have been gradually worsening over the past 4 months, and that he was advised to seek further workup by his MD physician so presented to [facility] today. Patient has been diagnosed with orthostatic hypotension, orthostatic hypotension could be secondary to intake of Seroquel, he has been consulted to psychiatry for medication management. Chart was reviewed, case discussed with nursing in charge, no collateral information available, patient was seen in the ER. On psychiatric evaluation patient was calm and cooperative, he says that he feels much better now, he described his mood as fine, he says that he has been stable in current psychotropics, he has been fully compliant with Seroquel and psychiatric follow- ups, he denies depressive symptoms, he denies anxiety, he denies yonas, he denies perceptual disturbances, he denies suicidal or homicidal ideation, he denies visual and auditory hallucinations. She also denies recent episodes of nightmares, flashbacks, hypervigilance, avoidance. He says that once in a while he has a nightmare and flashback, but not really very often and this is under control. Patient says that he has been in Seroquel 600 mg in the past, this dose was decreased about 2 months ago, he doesn't know the reason. Patient is fully oriented, no gross cognitive impairment observed, no behavioral or mood dysregulation observed or reported. Patient reports occasional use of alcohol, denies the use of illicit drugs such as heroin, cocaine, marijuana, among others. Review of Systems Constitutional: COMPLAINS OF: Fatigue Endocrine: DENIES: Heat/cold intolerance, Polydipsia, Polyuria, Polyphagia Eyes: DENIES: Blurred vision, Diplopia, Eye inflammation, Eye pain, Vision loss , Photosensitivity, Double Vision Ears, nose, mouth, throat: DENIES: Tinnitus, Hearing loss, Vertigo, Nasal discharge, Oral lesions, Throat pain, Hoarseness, Ear Pain, Running Nose, Epistaxis, Sinus Pain, Toothache, Odynophagia Respiratory: DENIES: Apneas, Cough, Snoring, Wheezing, Hemoptysis, Sputum production, Shortness of breath Cardiovascular: COMPLAINS OF: Syncope Gastrointestinal: DENIES: Abdominal pain, Black stools, Bloody stools, Constipation, Diarrhea, Nausea, Vomiting, Difficulty Swallowing, Anorexia Musculoskeletal: DENIES: Joint pain, Muscle aches, Stiffness, Joint Swelling, Back pain, Neck pain Integumentary: DENIES: Abnormal pigmentation, Nail changes, Pruritus, Rash Hematologic/lymphatic: DENIES: Bruising, Lymphadenopathy Immunologic/allergic: DENIES: Eczema, Urticaria Neurologic: DENIES: Abnormal gait, Headache, Localized weakness, Paresthesias, Seizures, Speech Problems, Tremor, Poor Balance Psychiatric: DENIES: Anxiety, Confusion, Mood changes, Depression, Hallucinations, Agitation, Suicidal Ideation, Homicidal Ideation, Delusions Past Family Social History Coded Allergies: No Known Allergies (Unverified , 07/02/16) Reported Medications Benztropine 2 Mg Tab2 Mg PO HS #30 TAB Ref 0 07/02/16 Clonazepam 1 Mg Tab1 Mg PO DAILY #60 TAB Ref 0 07/02/16 Quetiapine Fumarate (Quetiapine Fumarate ER)150 Mg Tab 07/02/16 Milk Thistle 175 Mg Cap 07/02/16 Gabapentin 400 Mg [id number] Cap PO TID #30 CAP Ref 0 07/02/16 Omeprazole 20 Mg Tab20 Mg PO DAILY #30 TAB Ref 0 07/02/16 Levothyroxine 125 Mcg [id number] Mcg PO DAILY #30 TAB Ref 0 07/02/16 Current Medications Medications (Trade) Dose Ordered Sig/Justin Route Start Time Stop Time Status Last Admin (NS 1000 ml Inj) 1,000 ml @ 120 mls/hr Q8H20M IV 07/02/16 15:00 07/03/16 03:55 (NS Flush) 2 ml UNSCH PRN FLUSH 07/02/16 14:45 (NS Flush) 2 ml BID FLUSH 07/02/16 21:00 (Tylenol) 650 mg Q4H PRN PO 07/02/16 14:45 (Zofran Inj) 4 mg Q6H PRN IVP 07/02/16 14:45 (Narcan Inj) 0.4 mg UNSCH PRN IV 07/02/16 14:45 (Ativan) 1 mg Q4H PRN PO 07/02/16 14:45 (Ativan Inj) 1 mg Q4H PRN IV PUSH 07/02/16 14:45 07/03/16 02:00 (Ativan) 2 mg Q2H PRN PO 07/02/16 14:45 07/02/16 22:05 (Ativan Inj) 2 mg Q2H PRN IV PUSH 07/02/16 14:45 (Ativan Inj) 2 mg Q1H PRN IV PUSH 07/02/16 14:45 (Ativan Inj) 2 mg Q15M PRN IV PUSH 07/02/16 14:45 07/03/16 01:31 (Folate) 1 mg DAILY PO 07/02/16 14:45 07/07/16 14:44 07/03/16 09:04 (Vitamin B1) 100 mg DAILY PO 07/02/16 15:00 07/03/16 09:05 (Theragran) 1 tab DAILY PO 07/03/16 09:00 07/03/16 09:24 (Cogentin) 2 mg HS PO 07/03/16 21:00 (Neurontin) 400 mg TID PO 07/02/16 21:15 07/03/16 13:23 (Protonix) 20 mg DAILY PO 07/03/16 09:00 07/03/16 09:04 (KlonoPIN) 1 mg Q12HR PRN PO 07/02/16 21:15 07/02/16 23:34 (Lovenox Inj) 40 mg Q24H SQ 07/02/16 21:15 07/02/16 22:03 (Synthroid) 112 mcg DAILY@06 PO 07/03/16 06:00 07/03/16 08:24 (Synthroid) 25 mcg DAILY@06 PO 07/03/16 06:00 07/03/16 08:24 Family History He denies Social History Patient was born and raised in [place], he has been living in [place] for about 30 years, he is a war , he is service-connected, single, unemployed , 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 Patient's Strengths (min. 2) Social support, 's service-connected Physical Exam Vital Signs Vital Signs Date Time Temp Pulse Resp B/P Pulse Ox O2 Delivery O2 Flow Rate FiO2 07/03/16 13:16 90 16 105/68 98 Room Air 07/03/16 05:04 98.3 I/O 07/02/16 07/02/16 07/03/16 08:00 16:00 00:00 Intake Total 480 ml Balance 480 ml Mental Status Examination Appearance Overweight man, Age appearing, hospital gown, he is calm and cooperative Speech: Unremarkable Orientation: x3 Memory: Unremarkable Thought Process: Logical Thought Content: Unremarkable Hallucination Type: None Attention and Concentration: Good Suicidal Ideation: No Homicidal Ideation: No Insight: Good Affect: Euthymic Mood: Appropriate Motor Activity: Normal gait Assessment & Plan Problem List: (1) Psychiatric disorder Assessment & Plan: 55-year-old man, psychiatric history of PTSD and bipolar disorder, 3 previous psychiatric hospitalizations, previous suicide attempts, outpatient psychiatry services in [facility], he is on Seroquel 450 mg daily, has been stable and current psychotropic regimen for a while. He came to the hospital complaining of dizziness and frequent syncopes. Psychiatric was consulted to assess potential syncope as Seroquel side effect. On psychiatric evaluation patient does not present any acute, concerning her significant psychiatric symptoms that require an immediate psychiatric intervention. Patient has been stable of his PTSD and bipolar disorder for long time now, he denies depression, denies anxiety, denies yonas, psychosis, denies visual and auditory hallucinations, denies suicidal or homicidal ideation. Certainly, Seroquel is well known by causing orthostatic hypotension. In this case, Seroquel could be decreased to 300 mg at bedtime, and is slowly taper down to 0 mg, usually with 100 milligrams every 2 or 3 days , and then he can be switched to another psychotropic by his outpatient psychiatrist. However, this changes should be [facility] Patient has next appointment in July 15, he was recommended to call him as soon as possible and informing him in about decreasing Seroquel. The patient can continue his psychiatric care as an outpatient. Extensive support, psychoeducation and motivation provided. Consult appreciated. ICD Code: F99 Assessment & Plan Estimated LOS: days Dane Paredes MD Jul 03, 2016 14:20
--- NOTE | 2016-07-03 16:55 | MB ---
cc: GUSTAVO BRAY DATE OF CONSULTATION: 07/03/2016 DATE OF 1960 REASON FOR CONSULTATION Orthostatic hypotension. HISTORY OF PRESENT ILLNESS A 55-year-old male with a past medical history significant for bipolar disorder , PTSD and hypothyroidism who presented to the emergency department complaining of shortness of breath with exertion, dizziness, rapid heart rate upon standing from a seated position to upright position. He reports that these symptoms have been gradually progressing in the last four months. He has had several evaluations for syncope. He was found to be having orthostatic hypotension in the emergency department and he was started on IV hydration. Cardiology has been consulted because of presumably tachycardia episodes. However, there are no evidence in chart of this. The patient denies chest pain, fevers, chills, nausea, constipation, diarrhea, dysphagia or bleeding issues. He reports being compliant with medications. He has also been found to have a TSH of 27 here, troponin is negative and severe hyperkalemia with a potassium of 2.7. REVIEW OF SYSTEMS Negative except for the ones mentioned in the HPI. PAST MEDICAL HISTORY 1. Hypothyroidism. 2. Seizures. 3. PTSD. 4. Bipolar disorder. 5. Asthma. 6. Syncope. PAST SURGICAL HISTORY 1. Trigger finger release. 2. Eye trauma surgery. 3. Thumb tendon release. MEDICATIONS Home medications reviewed, he is on - 1. Trazodone. 2. Clonazepam. 3. Benztropine. 4. Seroquel. 5. Levothyroxine. 6. Omeprazole. 7. Gabapentin. ALLERGIES NO KNOWN DRUG ALLERGIES. FAMILY HISTORY Noncontributory. SOCIAL HISTORY No smoking. Social alcohol. No illicit drug use. PHYSICAL EXAMINATION VITAL SIGNS: Temperature 97, respiratory rate 16, heart rate of 90, blood pressure 105/68, O2 sat 98% on room air. GENERAL: He is awake, alert, oriented x3, in no acute distress, lying in bed. He has tremors in his upper extremities. NECK: There is no JVD, no carotid bruits. HEART: Regular rate and rhythm. No murmurs, rubs or gallops appreciated. LUNGS: Clear to auscultation bilaterally. No wheezes, rhonchi or rales. ABDOMEN: Soft, nontender, nondistended. Positive bowel sounds. EXTREMITIES: No cyanosis or edema. LABORATORY DATA CBC: Hemoglobin of 11, hematocrit of 31, platelet count of 198. Chemistries: Potassium 2.7, coming up to 3. Troponin negative. TSH 27. EKG: Normal sinus rhythm. ASSESSMENT AND PLAN 55-year-old male admitted with orthostatic hypotension found to have elevated TSH, severe hypokalemia. Consulted to Cardiology due to presumably tachycardia and orthostatic hypotension. At this point, I think symptoms may be due either the hypothyroidism and hypokalemia as well as medication side effect Seroquel, which has been described to cause severe orthostatic hypotension. Carotid ultrasound has been unremarkable and echocardiogram is still pending. At this point, I will not pursue any cardiac workup. Recommendations: 1. Avoid electrolytes abnormalities 2. Endocrinology consult , supplement his thyroid for the hypothyroidism and 3. Psychiatry consult to see if the Seroquel medication can be discontinued or replaced with another medication. Thank you for the opportunity to take part in the care of this patient MD ISH Sin/RICHARD /2:41 PM /4:13 PM ABILIO
--- NOTE | 2016-07-03 17:30 | EC ---
Study Study Date:07/03/2016 STUDY CONCLUSIONS SUMMARY LEFT VENTRICLE: The cavity size was normal. Wall thickness was normal. Systolic function was normal. The estimated ejection fraction was in the range of 50% to 55%. Wall motion was normal; there were no regional wall motion abnormalities. If LV function is below 40, please consider prescribing an ACEI or ARB or document rationale for non-use. PROCEDURE DATA STUDY STATUS: Elective. Procedure: Transthoracic echocardiography. Image quality was good. Scanning was performed from the parasternal, apical, and subcostal acoustic windows. Study completion: The patient tolerated the procedure well. Transthoracic echocardiography. M-mode, complete 2D, complete spectral Doppler, and color Doppler. Patient status: Inpatient. CARDIAC ANATOMY LEFT VENTRICLE: The cavity size was normal. Wall thickness was normal. Systolic function was normal. The estimated ejection fraction was in the range of 50% to 55%. Wall motion was normal; there were no regional wall motion abnormalities. AORTIC VALVE: Trileaflet; normal thickness leaflets. Doppler: Transvalvular velocity was within the normal range. There was no stenosis. No regurgitation. AORTA: Aortic root: The aortic root was normal in size. MITRAL VALVE: Structurally normal valve. Doppler: Transvalvular velocity was within the normal range. There was no evidence for stenosis. No regurgitation. Peak gradient: 2mm Hg (D). LEFT ATRIUM: The atrium was normal in size. RIGHT VENTRICLE: The cavity size was normal. Wall thickness was normal. PULMONIC VALVE: Doppler: Transvalvular velocity was within the normal range. There was no evidence for stenosis. No regurgitation. TRICUSPID VALVE: Structurally normal valve. Doppler: Transvalvular velocity was within the normal range. No regurgitation. PULMONARY ARTERY: The main pulmonary artery was normal-sized. Systolic pressure was within the normal range. RIGHT ATRIUM: The atrium was normal in size. PERICARDIUM: There was no pericardial effusion. SYSTEMIC VEINS: Inferior vena cava: The vessel was normal in size. BASIC MEASUREMENTS ADULT Normal Left ventricle LV internal dimension, ED, chordal level, *37.8 mm 43-52 PLAX LV posterior wall thickness, ED 7.22 mm IVS/LVPW ratio, ED *1.31 <1.3 Ventricular septum Septal thickness, ED 9.45 mm Left atrium Anterior-posterior dimension 30 mm Right ventricle RV internal dimension, ED, PLAX 20 mm 19-38 DOPPLER MEASUREMENTS ADULT Normal Main pulmonary artery Pressure, S 25 mm Hg =30 Mitral valve Peak E-wave velocity 72.1 cm/s Peak A-wave velocity 66.1 cm/s Peak gradient, D 2 mm Hg Peak E/A ratio 1.1 Tricuspid valve Regurgitant peak velocity 191 cm/s Peak RV-RA gradient, S 15 mm Hg Maximal regurgitant velocity 191 cm/s Systemic veins Estimated CVP 10 mm Hg Right ventricle RV pressure, S 25 mm Hg <30 LEGEND: Mean values are shown as u=mean value. Asterisk (*) gifford values outside specified normal range. Prepared and signed by Vincenzo Boyer [id number]
--- NOTE | 2016-07-03 17:34 | HHI.FPPN ---
Subjective Remarks Mr. Dhaliwal was afebrile with stable vital signs overnight. Review to telemetry revealed ventricular tachycardia at ~1330 1/4 (not able to assess duration on tele review); subsequently sinus/sinus tachycardia. Patient reports decreased sleep overnight. Patient does not report other complaints. Per review of EMR, patient voiding normally. Patient seen eating breakfast this morning. (Ross Leos MD R2) Objective Vitals Vital Signs Date Time Temp Pulse Resp B/P Pulse Ox O2 Delivery O2 Flow Rate FiO2 07/03/16 15:45 97.2 86 19 121/86 96 07/03/16 14:50 82 17 106/72 97 07/03/16 13:16 90 16 105/68 98 Room Air 07/03/16 12:08 72 15 101/65 98 Room Air 07/03/16 10:37 94 16 115/72 98 Room Air 07/03/16 09:08 92 16 105/72 94 18 97/67 102 17 79/51 Automatic Cuff 07/03/16 09:07 96 16 97 Room Air 07/03/16 09:07 92 16 105/72 97 Room Air 07/03/16 08:26 87 16 102/70 95 Room Air 07/03/16 07:43 94 21 07/03/16 05:04 98.3 86 20 128/89 100 07/03/16 01:56 95 20 119/71 100 07/02/16 22:10 87 20 123/93 07/02/16 20:00 97.6 90 20 108/73 100 07/02/16 18:43 102 15 107/70 98 Room Air 07/02/16 17:36 100 16 110/69 97 Room Air I/O 07/02/16 07/02/16 07/02/16 07/03/16 07/03/16 07/03/16 07:00 15:00 23:00 07:00 15:00 23:00 Intake Total 480 ml 240 ml Output Total 500 ml Balance 480 ml -500 ml 240 ml Intake Oral 480 ml 240 ml Output Urine Total 500 ml # Voids 1 1 (Ross Leos MD R2) Result Diagram: 07/03/16 0414 07/03/16 0419 Imaging Last Impressions Carotid Artery Ultrasound 07/03/16 0000 Signed Impressions: Service Date/Time: June 11:12 - CONCLUSION: No evidence of flow-limiting carotid stenosis. Johann Hdez MD Chest X-Ray 07/02/16 0913 Signed Impressions: Service Date/Time: Saturday, July 02, 2016 09:29 - CONCLUSION: 1. Minimal linear scarring or atelectasis at the lung bases. Exam otherwise unremarkable. Sarwat Soliman MD CT Angiography 07/02/16 0000 Signed Impressions: Service Date/Time: Saturday, July 02, 2016 12:26 - CONCLUSION: 1. No pulmonary embolus identified. 2. There is an area of linear atelectasis or scarring at the right lung base. Devon Ramachandran MD Objective Remarks GENERAL: Patient appears comfortable, in no acute distress. SKIN: Warm and dry, no rashes appreciated EYES: No scleral icterus, injection, or drainage. PERRLA. EOMI. CARDIOVASCULAR: Regular rate and rhythm without murmurs. Normal peripheral perfusion in lower extremities. RESPIRATORY: Normal respiratory rate. Lungs clear to auscultation bilaterally. GASTROINTESTINAL: Abdomen soft, nondistended, nontender. Bowel sounds normal. MUSCULOSKELETAL: No lower extremity swelling. No appreciated calf asymmetry. NEURO/PSYCH: Awake, alert, and oriented. Cranial nerves intact. Normal sensory function peripherally; normal strength bilaterally. (Ross Leos MD R2) A/P Assessment and Plan Mr. Dhaliwal is a 55 yo male with: (Ross Leos MD R2) Attending Attestation Patient seen and examined with the resident team. Case reviewed and discussed Agree with plan of care as discussed with me and documented in the resident note. (Rona Liang MD) Problem List: (1) Shortness of breath Status: Acute Plan: Impression: Several months of worsening shortness of breath on exertion. Mild anemia (Hgb 12.8) Positive orthostatic vitals in ED. Lungs clear to auscultation; saturating normal on room air D-dimer 2.3; CTA did not show PE We'll check echocardiography to assess cardiac output Continue to monitor vitals, O2 sats (2) Metabolic acidosis, increased anion gap (IAG) Status: Resolved Plan: Impression: Unclear etiology. Patient with history of alcohol consumption ; no known diabetes. Anion gap 21 on admission; CO2 15.8. VBG on admission: pH 7.38, CO2 32, HCO3 18 Lactic acid 4.6 on admission-> 1.4 B hydroxybutyrate 3.68 Repeat ABG- pH 7.44, CO2 27, HCO3 18 Plasma osmolality- 289 Aspirin 5.7, Ethyl alcohol 33, Acetaminophen <2. -Since resolving, will continue IV fluid supplementation and monitor (3) Alcohol abuse Status: Chronic Plan: Impression: Chronic alcohol use; unclear total usage since history per patient seems to have varied MCV 109.6; patient reports poor nutrition B12 765, Folate 3.6, Thiamine pending -[facility] protocol -Electrolyte replacement (4) Orthostatic hypotension Status: Acute Plan: Impression: Unclear etiology. Orthostatic vitals in ED: Supine 130/82, standing 78/52 No known peripheral/autonomic neuropathy risk factors Patient on Seroquel and Trazodone Troponin negative in ED; EKG not suggestive of ischemia Associated with ventricular tachycardia on Telemetry ~1330 07/02 -Continue IV fluid supplementation at maintenance NS -s/p3 L NS boluses -Hold potentially affecting medications -Hold home Seroquel -Consider changing Trazodone since also could be a factor -Continue to monitor orthostatic VS -Positive as of 0900 07/03 off of Seroquel -No corresponding tachycardia -Carotid US not suggestive of stenosis -Cardiology consulted -No other cardiac work up deemed appropriate at this time; continue treating electrolyte imbalances, hypothyroidism (5) Psychiatric disorder Status: Chronic Plan: Impression: Patient reports history of Bipolar disorder and PTSD; currently controlled with Seroquel, trazodone, and gabapentin. Patient reports history of lithium treatment and subsequent tremor -Continue Benztropine for tremor disorder -Continue home Trazodone -Hold home Seroquel for suspected contribution to orthostatic hypotension -Psychiatry consulted -Decrease Seroquel to 300mg HS and slowly taper (100mg q2-3 days) -After taper, switch agents by outpatient psychiatrist -Extensive support, psychoeducation, and motivation provided (6) Hypothyroidism Status: Chronic Plan: Impression: History of hypothyroidism TSH 27.2, free T4 0.69 on admission -Will increase Levothyroxine by 12.5 mcg to 137.5 mcg (7) DVT Prophylaxis Status: Acute Plan: -Bilateral SCD's -Lovenox 40mg daily (8) Fluids, Electrolytes, and Nutrition Status: Acute Plan: Fluids: Continue NS at 120ml/hr -s/p 3 L NS Electrolytes: Monitor and replete as needed Nutrition: Regular basic diet (Ross Leos MD R2) Problem Qualifiers (1) Hypothyroidism: Qualified Code: E03.9 - Hypothyroidism, unspecified type Ross Leos MD R2 Jul 03, 2016 17:34 Rona Liang MD Jul 04, 2016 10:51
[2016-07-03] MEDS: QUEtiapine FUMARATE 300 MG TAB PO SCH (22:39)
[2016-07-03] MEDS: ENOXAPARIN SODIUM 40 MG/0.4 ML SYRINGE SQ SCH (22:39)
[2016-07-03] MEDS: clonazePAM 1 MG TAB PO PRN (22:43)
[2016-07-04] VITALS (9 sets, daily range): BP systolic 92–139; BP diastolic 52–95; PULSE 78–116; RESP 16–19; TEMP 95.8–98.4; O2SAT 95–99
[2016-07-04 06:17] LABS: HEMATOCRIT 29.6 % (39.0-51.0); REVIEW FLAG FINAL
[2016-07-04] MEDS: LEVOTHYROXINE SODIUM 112 MCG TAB PO SCH (06:41)
[2016-07-04] MEDS: LEVOTHYROXINE SODIUM 25 MCG TAB PO SCH (06:41)
[2016-07-04 06:55] LABS: BICARBONATE 25.3 MEQ/L (21.0-32.0)
[2016-07-04 07:03] LABS: POTASSIUM 3.6 MEQ/L (3.5-5.1)
[2016-07-04] MEDS: SODIUM CHLOR 0.9% 1000 ML INJ 1,000 ML IV SCH ×4 (08:40→23:09)
[2016-07-04] MEDS: GABAPENTIN 400 MG CAP PO SCH ×3 (09:22→17:35)
[2016-07-04] MEDS: FOLIC ACID 1 MG TAB PO SCH (09:22)
[2016-07-04] MEDS: PANTOPRAZOLE SOD 20 MG DELAYED RELEASE TAB PO SCH (09:22)
[2016-07-04] MEDS: MULTIVITAMIN TAB PO SCH (09:22)
[2016-07-04] MEDS: THIAMINE HCL 100 MG TAB PO SCH (09:22)
[2016-07-04] MEDS: SODIUM CHLORIDE 0.9% FLUSH 5 ML FLUSH FLUSH SCH ×2 (09:24→23:09)
--- NOTE | 2016-07-04 11:10 | HHI.FPPN ---
Subjective Remarks Mr. Dhaliwal was afebrile with stable vital signs overnight. Patient with positive orthostatics at 0400 07/04 (supine BP 128/84 with HR 88, standing BP 92/ 52 with HR 108). Review of telemetry reveals 6 beats of wide complex tachycardia but otherwise no events recorded. Per EMR, patient voiding frequently but is not a bowel movement. Patient reports that he is doing well overall; patient requests additional ambulation with physical therapy. Objective Vitals Vital Signs Date Time Temp Pulse Resp B/P Pulse Ox O2 Delivery O2 Flow Rate FiO2 07/04/16 08:00 96.8 88 18 123/89 98 07/04/16 04:01 108 17 92/52 99 07/04/16 04:00 95.8 88 19 128/84 97 07/04/16 04:00 93 17 109/79 98 07/04/16 00:00 98.0 97 18 121/80 98 07/03/16 20:00 96.8 81 19 127/85 98 07/03/16 15:45 97.2 86 19 121/86 96 07/03/16 14:50 82 17 106/72 97 07/03/16 13:16 90 16 105/68 98 Room Air 07/03/16 12:08 72 15 101/65 98 Room Air I/O 07/03/16 07/03/16 07/03/16 07/04/16 07/04/16 07/04/16 07:00 15:00 23:00 07:00 15:00 23:00 Intake Total 240 ml 480 ml 1095 ml Output Total 500 ml Balance -500 ml 240 ml 480 ml 1095 ml Intake Oral 240 ml 480 ml 480 ml IV Total 615 ml Output Urine Total 500 ml # Voids 1 1 3 4 # Bowel Movements 0 0 Result Diagram: 07/04/16 0505 07/04/16 0505 Imaging Last Impressions Carotid Artery Ultrasound 07/03/16 0000 Signed Impressions: Service Date/Time: June 11:12 - CONCLUSION: No evidence of flow-limiting carotid stenosis. Johann Hdez MD Chest X-Ray 07/02/16 0913 Signed Impressions: Service Date/Time: Saturday, July 02, 2016 09:29 - CONCLUSION: 1. Minimal linear scarring or atelectasis at the lung bases. Exam otherwise unremarkable. Sarwat Soliman MD CT Angiography 07/02/16 0000 Signed Impressions: Service Date/Time: Saturday, July 02, 2016 12:26 - CONCLUSION: 1. No pulmonary embolus identified. 2. There is an area of linear atelectasis or scarring at the right lung base. Devon Ramachandran MD Objective Remarks GENERAL: Patient appears comfortable, in no acute distress. SKIN: Warm and dry, no rashes appreciated EYES: No scleral icterus, injection, or drainage. EOMI. CARDIOVASCULAR: Regular rate and rhythm without murmurs. Normal peripheral perfusion in lower extremities. RESPIRATORY: Normal respiratory rate. Lungs clear to auscultation bilaterally. GASTROINTESTINAL: Abdomen soft, nondistended, nontender. Bowel sounds normal. MUSCULOSKELETAL: No lower extremity swelling. No appreciated calf asymmetry. NEURO/PSYCH: Awake, alert, and oriented. Cranial nerves intact. Normal sensory function peripherally; normal strength bilaterally. A/P Assessment and Plan Mr. Dhaliwal is a 55 yo male with: Problem List: (1) Orthostatic hypotension Status: Acute Plan: Impression: Unclear etiology. Orthostatic vitals in ED: Supine 130/82, standing 78/52 No known peripheral/autonomic neuropathy risk factors Patient on Seroquel and Trazodone Troponin negative in ED; EKG not suggestive of ischemia Associated with ventricular tachycardia on Telemetry ~1330 07/02 Carotid US not suggestive of stenosis Echo without structural heart disease -Continue to monitor orthostatic VS -Positive as of 07/04; no POTS -Continue PT -Assess medications medications -Seroquel: -Psychiatry consulted, will start at 300mg and slowly taper q2-3 days -Trazodone: -Will consider adjusting based on responsiveness to Seroquel reduction -Continue IV fluid supplementation at maintenance NS -s/p3 L NS boluses -Cardiology consulted -No other cardiac work up deemed appropriate at this time; continue treating electrolyte imbalances, hypothyroidism (2) Psychiatric disorder Status: Chronic Plan: Impression: Patient reports history of Bipolar disorder and PTSD; currently controlled with Seroquel, trazodone, and gabapentin. Patient reports history of lithium treatment and subsequent tremor -Continue Benztropine for tremor disorder -Continue home Trazodone -Hold home Seroquel for suspected contribution to orthostatic hypotension -Psychiatry consulted -Decrease Seroquel to 300mg HS and slowly taper (100mg q2-3 days) -After taper, switch agents by outpatient psychiatrist -Extensive support, psychoeducation, and motivation provided (3) Shortness of breath Status: Acute Plan: Impression: Several months of worsening shortness of breath on exertion. Mild anemia (Hgb 12.8) Positive orthostatic vitals in ED. Lungs clear to auscultation; saturating normal on room air D-dimer 2.3; CTA did not show PE Echocardiography: EF 5055% Continue to monitor vitals, O2 sats (4) Metabolic acidosis, increased anion gap (IAG) Status: Resolved Plan: Impression: Unclear etiology. Patient with history of alcohol consumption ; no known diabetes. Anion gap 21 on admission; CO2 15.8. VBG on admission: pH 7.38, CO2 32, HCO3 18 Lactic acid 4.6 on admission-> 1.4 B hydroxybutyrate 3.68 Repeat ABG- pH 7.44, CO2 27, HCO3 18 Plasma osmolality- 289 Aspirin 5.7, Ethyl alcohol 33, Acetaminophen <2. -Since resolving, will continue IV fluid supplementation and monitor (5) Alcohol abuse Status: Chronic Plan: Impression: Chronic alcohol use; unclear total usage since history per patient seems to have varied MCV 109.6; patient reports poor nutrition B12 765, Folate 3.6, Thiamine pending -[facility] protocol -Electrolyte replacement (6) Hypothyroidism Status: Chronic Plan: Impression: History of hypothyroidism TSH 27.2, free T4 0.69 on admission -Will increase Levothyroxine by 12.5 mcg to 137.5 mcg (7) DVT Prophylaxis Status: Acute Plan: -Bilateral SCD's -Lovenox 40mg daily (8) Fluids, Electrolytes, and Nutrition Status: Acute Plan: Fluids: Continue NS at 120ml/hr -s/p 3 L NS Electrolytes: Monitor and replete as needed Nutrition: Regular basic diet Problem Qualifiers (1) Hypothyroidism: Qualified Code: E03.9 - Hypothyroidism, unspecified type Ross Leos MD R2 Jul 04, 2016 11:10
--- NOTE | 2016-07-04 15:37 | HHI.FF ---
Face to Face Verification Diagnosis: (1) Orthostatic hypotension (2) Hypothyroidism (3) Shortness of breath Physical Therapy Order: Evaluate and Treat Home Health Nursing Order: Medical education I have seen patient Dino Dhaliwal on 07/04/16. My clinical findings support the need for the requested home health care services because: High risk of falls I certify that my clinical findings support that this patient is homebound because: Unsteady gait/balance Joao Burt MD R1 Jul 04, 2016 15:37
[2016-07-04] MEDS ORDERED: SODIUM CHLOR 0.9% 1000 ML INJ 1,000 ML IV ONE ×2 (15:45→16:45)
[2016-07-04] MEDS: BENZTROPINE MESYLATE 2 MG TAB PO SCH ×2 (21:00→23:08)
[2016-07-04] MEDS: ENOXAPARIN SODIUM 40 MG/0.4 ML SYRINGE SQ SCH (21:15)
[2016-07-04] MEDS: QUEtiapine FUMARATE 300 MG TAB PO SCH (23:08)
[2016-07-04] MEDS: clonazePAM 1 MG TAB PO PRN (23:38)
[2016-07-05 04:00] VITALS: BP 121/84; PULSE 96; RESP 16; TEMP 97.2; O2SAT 94
[2016-07-05] MEDS: LEVOTHYROXINE SODIUM 112 MCG TAB PO SCH (06:00)
[2016-07-05 06:57] LABS: BICARBONATE 24.7 MEQ/L (21.0-32.0); POTASSIUM 3.2 MEQ/L (3.5-5.1)
[2016-07-05 07:17] LABS: HEMATOCRIT 31.2 % (39.0-51.0); REVIEW FLAG FINAL
[2016-07-05] MEDS: LEVOTHYROXINE SODIUM 25 MCG TAB PO SCH (07:53)
[2016-07-05 08:00] VITALS: BP_SYST 108; BP_SYST 118; BP_SYST 94; BP_DIAS 72; BP_DIAS 84; BP_DIAS 87; PULSE 111; RESP 18; TEMP 95.1; O2SAT 99
[2016-07-05] MEDS: FOLIC ACID 1 MG TAB PO SCH (08:27)
[2016-07-05] MEDS: THIAMINE HCL 100 MG TAB PO SCH (08:27)
[2016-07-05] MEDS: GABAPENTIN 400 MG CAP PO SCH ×2 (08:28→12:20)
[2016-07-05] MEDS: PANTOPRAZOLE SOD 20 MG DELAYED RELEASE TAB PO SCH (08:28)
[2016-07-05] MEDS: SODIUM CHLOR 0.9% 1000 ML INJ 1,000 ML IV SCH (08:28)
[2016-07-05] MEDS: MULTIVITAMIN TAB PO SCH (08:28)
[2016-07-05] MEDS: SODIUM CHLORIDE 0.9% FLUSH 5 ML FLUSH FLUSH SCH (08:28)
[2016-07-05] MEDS ORDERED: POTASSIUM CHLORIDE 10 MEQ CONTROLLED RELEASE TAB PO ONE ×3 (09:00→13:00)
[2016-07-05] MEDS ORDERED: FOLI1TAB4 PO (10:18)
[2016-07-05] MEDS ORDERED: VITA100T2 PO (10:18)
[2016-07-05] MEDS ORDERED: THERTAB15 PO (10:18)
[2016-07-05] MEDS ORDERED: LEVO25TA4 PO (10:18)
[2016-07-05] MEDS ORDERED: QUET1TAB9 PO (10:18)
[2016-07-05] MEDS ORDERED: SYNT112T PO (10:18)
[2016-07-05 10:30] LABS: INDIRECT BILIRUBIN 0.3 MG/DL (0.0-0.8); TOTAL BILIRUBIN ADULT 0.6 MG/DL (0.2-1.0)
[2016-07-05 12:00] VITALS: BP 116/79; PULSE 93; RESP 18; TEMP 95.8; O2SAT 96
--- NOTE | 2016-07-05 13:48 | HHI.FPPN ---
Subjective Remarks Mr. Dhaliwal was afebrile with stable vital signs overnight. Patient's orthostatics 0400 07/05 were positive but improved (99/68 standing, 134/63 supine) . Patient reported desire to ambulate more, stating that he felt confined while hospitalized. Patient did not report dizziness, lightheadedness, or shortness of breath. Patient states that his next [facility] . (Ross Leos MD R2) Objective Vitals Vital Signs Date Time Temp Pulse Resp B/P Pulse Ox O2 Delivery O2 Flow Rate FiO2 07/05/16 12:00 95.8 93 18 116/79 96 07/05/16 08:00 95.1 111 18 108/84 99 94/72 118/87 07/05/16 04:00 97.2 96 16 121/84 94 07/04/16 23:20 116 18 100/70 98 07/04/16 23:18 104 17 115/88 98 07/04/16 23:16 98.4 86 18 139/95 98 07/04/16 20:00 98.1 78 16 134/63 95 119/79 99/68 I/O 07/04/16 07/04/16 07/04/16 07/05/16 07/05/16 07/05/16 07:00 15:00 23:00 07:00 15:00 23:00 Intake Total 1095 ml 1200 ml 240 ml 240 ml Output Total 400 ml Balance 1095 ml 1200 ml 240 ml -160 ml Intake Oral 480 ml 1200 ml 240 ml 240 ml IV Total 615 ml Output Urine Total 400 ml # Voids 4 1 1 1 # Bowel Movements 0 0 2 0 (Ross Leos MD R2) Result Diagram: 07/05/16 0531 07/05/16 0531 Imaging Last Impressions Carotid Artery Ultrasound 07/03/16 0000 Signed Impressions: Service Date/Time: June 11:12 - CONCLUSION: No evidence of flow-limiting carotid stenosis. Johann Hdez MD Chest X-Ray 07/02/16 0913 Signed Impressions: Service Date/Time: Saturday, July 02, 2016 09:29 - CONCLUSION: 1. Minimal linear scarring or atelectasis at the lung bases. Exam otherwise unremarkable. Sarwat Soliman MD CT Angiography 07/02/16 0000 Signed Impressions: Service Date/Time: Saturday, July 02, 2016 12:26 - CONCLUSION: 1. No pulmonary embolus identified. 2. There is an area of linear atelectasis or scarring at the right lung base. Devon Ramachandran MD Objective Remarks GENERAL: Patient appears comfortable, in no acute distress. SKIN: Warm and dry, no rashes appreciated EYES: No scleral icterus, injection, or drainage. EOMI. CARDIOVASCULAR: Regular rate and rhythm without murmurs. Normal peripheral perfusion in lower extremities. RESPIRATORY: Normal respiratory rate. Lungs clear to auscultation bilaterally. GASTROINTESTINAL: Abdomen soft, nondistended, nontender. Bowel sounds normal. MUSCULOSKELETAL: No lower extremity swelling. No appreciated calf asymmetry. Patient witnessed ambulating down the hallway with wheeled walker; stable gait NEURO/PSYCH: Awake, alert, and oriented. Cranial nerves intact. Normal sensory function peripherally; normal strength bilaterally. (Ross Leos MD R2) A/P Assessment and Plan Mr. Dhaliwal is a 55 yo male with: (Ross Leos MD R2) Attending Attestation Patient seen and examined with Dr. Leos. Case reviewed and discussed Agree with plan of care as discussed with me and documented in the resident note (Rona Liang MD) Problem List: (1) Orthostatic hypotension Status: Acute Plan: Impression: Unclear etiology. Orthostatic vitals in ED: Supine 130/82, standing 78/52 No known peripheral/autonomic neuropathy risk factors Patient on Seroquel and Trazodone Troponin negative in ED; EKG not suggestive of ischemia Associated with ventricular tachycardia on Telemetry ~1330 07/02 Carotid US not suggestive of stenosis Echo without structural heart disease -Continue to monitor orthostatic VS --Persistently positive orthostatic vitals during hospitalization -Continue PT -Home PT recommended -Assess medications medications -Seroquel: -Psychiatry consulted, will start at 300mg and slowly taper q2-3 days -Patient will be discharged on 200 MG daily at bedtime and taper in 23 days at home -Trazodone: -Will consider adjusting based on responsiveness to Seroquel reduction -Continue IV fluid supplementation at maintenance NS; s/p3 L NS boluses -Frequent home oral consumption advised; patient states he will comply -Cardiology consulted -No other cardiac work up deemed appropriate at this time; continue treating electrolyte imbalances, hypothyroidism (2) Psychiatric disorder Status: Chronic Plan: Impression: Patient reports history of Bipolar disorder and PTSD; currently controlled with Seroquel, trazodone, and gabapentin. Patient reports history of lithium treatment and subsequent tremor -Continue Benztropine for tremor disorder -Continue home Trazodone -Hold home Seroquel for suspected contribution to orthostatic hypotension -Psychiatry consulted -Decrease Seroquel to 300mg HS and slowly taper (100mg q2-3 days) -After taper, switch agents by outpatient psychiatrist -Extensive support, psychoeducation, and motivation provided (3) Shortness of breath Status: Chronic Plan: Impression: Several months of worsening shortness of breath on exertion. Mild anemia (Hgb 12.8) Positive orthostatic vitals in ED. Lungs clear to auscultation; saturating normal on room air D-dimer 2.3; CTA did not show PE Echocardiography: EF 5055% Continue to monitor vitals, O2 sats (4) Metabolic acidosis, increased anion gap (IAG) Status: Resolved Plan: Impression: Unclear etiology. Patient with history of alcohol consumption ; no known diabetes. Anion gap 21 on admission; CO2 15.8. VBG on admission: pH 7.38, CO2 32, HCO3 18 Lactic acid 4.6 on admission-> 1.4 B hydroxybutyrate 3.68 Repeat ABG- pH 7.44, CO2 27, HCO3 18 Plasma osmolality- 289 Aspirin 5.7, Ethyl alcohol 33, Acetaminophen <2. -Since resolving, will continue IV fluid supplementation and monitor (5) Alcohol abuse Status: Chronic Plan: Impression: Chronic alcohol use; unclear total usage since history per patient seems to have varied MCV 109.6; patient reports poor nutrition B12 765, Folate 3.6, Thiamine pending -[facility] protocol -Electrolyte replacement (6) Hypothyroidism Status: Chronic Plan: Impression: History of hypothyroidism TSH 27.2, free T4 0.69 on admission -Will increase Levothyroxine by 12.5 mcg to 137 mcg Patient states he may be unable to acquire higher dosage of levothyroxine for several days, but will attempt equivalent dosing (7) DVT Prophylaxis Status: Acute Plan: -Bilateral SCD's -Lovenox 40mg daily (8) Fluids, Electrolytes, and Nutrition Status: Acute Plan: Fluids: Continue NS at 120ml/hr during hospitalization -s/p 3 L NS Electrolytes: Monitor and replete as needed Nutrition: Regular basic diet (Ross Leos MD R2) Problem Qualifiers (1) Hypothyroidism: Qualified Code: E03.9 - Hypothyroidism, unspecified type Ross Leos MD R2 Jul 05, 2016 13:48 Rona Liang MD Jul 06, 2016 14:02
[2016-07-05] MEDS ORDERED: QUEtiapine FUMARATE 200 MG TAB PO SCH (21:00)
--- NOTE | 2016-07-06 11:19 | HHI.DS ---
Discharge Summary Admission Date Jul 02, 2016 at 12:29 pm Discharge Date: Jul 05, 2016 Admitting Diagnosis syncope, metabolic acidosis, orthostatic hypotension (1) Orthostatic hypotension Diagnosis: Principal Plan: Impression: Unclear etiology. Orthostatic vitals in ED: Supine 130/82, standing 78/52 No known peripheral/autonomic neuropathy risk factors Patient on Seroquel and Trazodone Troponin negative in ED; EKG not suggestive of ischemia Associated with ventricular tachycardia on Telemetry ~1330 07/02 Carotid US not suggestive of stenosis Echo without structural heart disease -Continue to monitor orthostatic VS --Persistently positive orthostatic vitals during hospitalization -Continue PT -Home PT recommended -Assess medications medications -Seroquel: -Psychiatry consulted, will start at 300mg and slowly taper q2-3 days -Patient will be discharged on 200 MG daily at bedtime and taper in 23 days at home -Trazodone: -Will consider adjusting based on responsiveness to Seroquel reduction -Continue IV fluid supplementation at maintenance NS; s/p3 L NS boluses -Frequent home oral consumption advised; patient states he will comply -Cardiology consulted -No other cardiac work up deemed appropriate at this time; continue treating electrolyte imbalances, hypothyroidism (2) Psychiatric disorder Diagnosis: Secondary Plan: Impression: Patient reports history of Bipolar disorder and PTSD; currently controlled with Seroquel, trazodone, and gabapentin. Patient reports history of lithium treatment and subsequent tremor -Continue Benztropine for tremor disorder -Continue home Trazodone -Hold home Seroquel for suspected contribution to orthostatic hypotension -Psychiatry consulted -Decrease Seroquel to 300mg HS and slowly taper (100mg q2-3 days) -After taper, switch agents by outpatient psychiatrist -Extensive support, psychoeducation, and motivation provided (3) Shortness of breath Diagnosis: Secondary Plan: Impression: Several months of worsening shortness of breath on exertion. Mild anemia (Hgb 12.8) Positive orthostatic vitals in ED. Lungs clear to auscultation; saturating normal on room air D-dimer 2.3; CTA did not show PE Echocardiography: EF 5055% Continue to monitor vitals, O2 sats (4) Metabolic acidosis, increased anion gap (IAG) Diagnosis: Secondary Plan: Impression: Unclear etiology. Patient with history of alcohol consumption ; no known diabetes. Anion gap 21 on admission; CO2 15.8. VBG on admission: pH 7.38, CO2 32, HCO3 18 Lactic acid 4.6 on admission-> 1.4 B hydroxybutyrate 3.68 Repeat ABG- pH 7.44, CO2 27, HCO3 18 Plasma osmolality- 289 Aspirin 5.7, Ethyl alcohol 33, Acetaminophen <2. -Since resolving, will continue IV fluid supplementation and monitor (5) Alcohol abuse Diagnosis: Secondary Plan: Impression: Chronic alcohol use; unclear total usage since history per patient seems to have varied MCV 109.6; patient reports poor nutrition B12 765, Folate 3.6, Thiamine pending -[facility] protocol -Electrolyte replacement (6) Hypothyroidism Diagnosis: Secondary Plan: Impression: History of hypothyroidism TSH 27.2, free T4 0.69 on admission -Will increase Levothyroxine by 12.5 mcg to 137 mcg Patient states he may be unable to acquire higher dosage of levothyroxine for several days, but will attempt equivalent dosing [facility] Psychiatry - Dr. Paredes Cardiology - Dr. Soliman Brief History Mr. Dhaliwal is a 55 yo M with PMH of psychiatric disease (bipolar disorder, PTSD , hypothyroidism, "tremor" (presumably lithium induced) who presents with several months of worsening shortness of breath with exertion, dizziness and rapid heart rate upon standing from a sitting position, and weakness. Patient reports that the symptoms have been gradually worsening over the past 4 months, and that he was advised to seek [facility] work[facility] so presented to [place] today. Patient reports 1 episode of prior syncope several years [or months per ED documentation; will clarify with patient] prior where he fell shortly after standing at his bedside, resulting in him lacerating his forehead on countertop. Patient did not report any cerebral disease from this fall. Patient is not aware of any prior cardiac disease, and states that he had his last echo approximately 1 year ago (patient does not report knowing results). Patient reports that his dizziness and fast heart rate occur when standing. Patient reports significant shortness of breath when walking; having to rest every few steps and walking up the stairs. Patient feels that his gait is abnormal and walking and that he has increased weakness in his lower extremities. Patient states that he does not feel this weakness when lying supine in bed. Patient also reports losing 10 lbs due to lack of oral intake over the past month. Patient reports taking frequently; as much as 6 drinks every other night. No reported recent illnesses, fevers/chills, nasuea, constipation/diarrhea, dysuria, or chest pain. Patient states he may have had prior seizure vs tremor. Regarding patient's tremor, he states that he previously took lithium ~2 years prior; patient reports shaking started after this. Interval History: Patient to have positive orthostatics in ED; placed on IV fluids. BMP with elevated anion gap and low CO2; ABG demonstrative of low CO2 (32)/HCO3 (18) and normal pH (7.38). TSH (27.2) elevated and T4 low (0.69); lactic acid 4.6, B hydroxybutyrate mildly elevated. Patient tachycardic; CTA obtained but found to be negative. CBC/BMP: 07/05/16 0531 07/05/16 0531 Significant Findings Laboratory Tests Test 07/04/16 07/05/16 05:05 05:31 Hemoglobin 10.5 GM/DL 10.9 GM/DL (13.0-17.0) (13.0-17.0) Hematocrit 29.6 % 31.2 % (39.0-51.0) (39.0-51.0) Chloride Level 110 MEQ/L (98-107) Blood Urea Nitrogen 4 MG/DL (7-18) 5 MG/DL (7-18) Creatinine 0.56 MG/DL (0.60-1.30) Calcium Level 7.9 MG/DL 8.1 MG/DL (8.5-10.1) (8.5-10.1) Potassium Level 3.2 MEQ/L (3.5-5.1) Direct Bilirubin 0.3 MG/DL (0.0-0.2) Aspartate Amino Transf 96 U/L (15-37) (AST/SGOT) Total Protein 5.9 GM/DL (6.4-8.2) Albumin 2.8 GM/DL (3.4-5.0) Imaging Last Impressions Carotid Artery Ultrasound 07/03/16 0000 Signed Impressions: Service Date/Time: June 11:12 - CONCLUSION: No evidence of flow-limiting carotid stenosis. Johann Hdez MD Chest X-Ray 07/02/16 0913 Signed Impressions: Service Date/Time: Saturday, July 02, 2016 09:29 - CONCLUSION: 1. Minimal linear scarring or atelectasis at the lung bases. Exam otherwise unremarkable. Sarwat Soliman MD CT Angiography 07/02/16 0000 Signed Impressions: Service Date/Time: Saturday, July 02, 2016 12:26 - CONCLUSION: 1. No pulmonary embolus identified. 2. There is an area of linear atelectasis or scarring at the right lung base. Devon Ramachandran MD PE at Discharge GENERAL: Patient appears comfortable, in no acute distress. SKIN: Warm and dry, no rashes appreciated EYES: No scleral icterus, injection, or drainage. EOMI. CARDIOVASCULAR: Regular rate and rhythm without murmurs. Normal peripheral perfusion in lower extremities. RESPIRATORY: Normal respiratory rate. Lungs clear to auscultation bilaterally. GASTROINTESTINAL: Abdomen soft, nondistended, nontender. Bowel sounds normal. MUSCULOSKELETAL: No lower extremity swelling. No appreciated calf asymmetry. Patient witnessed ambulating down the hallway with wheeled walker; stable gait NEURO/PSYCH: Awake, alert, and oriented. Cranial nerves intact. Normal sensory function peripherally; normal strength bilaterally. Hospital Course 55 yo with h/o psychiatric disorders, hypothyroidism, alcohol abuse admitted for several episodes of syncope and near-syncope found to be due to orthostatic hypotension. Work-up for cardiac etiology including Echo and carotid U/s negative, Cardiology consulted and recommended no further work-up. Etiology suspected to be due to Seroquel side effect as patient's dose was recently increased prior to admission. Psychiatry consulted and recommended taper of Seroquel with outpatient follow up by patient's regular psychiatrist. Patient was also noted to have metabolic acidosis on admission suspected to be combination of poor PO intake and alcohol use. This resolved prior to discharge. Pt Condition on Discharge: Good Discharge Disposition: Disch w/ Home Health Serv Discharge Instructions DIET: Follow Instructions for: As Tolerated, No Restrictions Activities you can perform: See Additionl Instruction Other Activity Instructions: Please sit down if you feel dizzy/lightheaded/or have a fast heart beat. Please walk slowly and carefully. Follow up Referrals: PCP Follow-up - 1 Week Psychiatry Adult New Medications: Folic Acid (Folate) 1 Mg Tab 1 MG PO DAILY #30 TAB Levothyroxine (Synthroid) 112 Mcg Tab 112 MCG PO DAILY@06 #30 TAB Levothyroxine (Levothyroxine) 25 Mcg Tab 25 MCG PO DAILY@06 #30 TAB Multiple Vitamin (Thera/Beta-Carotene) 1 Tab Tab 1 TAB PO DAILY #30 TAB Quetiapine (Quetiapine) 200 Mg Tab 200 MG PO HS #30 TAB Thiamine (Vitamin B-1) 100 Mg Tab 100 MG PO DAILY #30 TAB Continued Medications: Benztropine (Benztropine) 2 Mg Tab 2 MG PO HS #30 Ref 0 TAB Clonazepam (Clonazepam) 1 Mg Tab 1 MG PO DAILY #60 Ref 0 TAB Gabapentin (Gabapentin) 400 Mg Cap 400 CAP PO TID #30 Ref 0 CAP Milk Thistle (Milk Thistle) 175 Mg Cap Omeprazole (Omeprazole) 20 Mg Tab 20 MG PO DAILY #30 Ref 0 TAB Discontinued Medications: Levothyroxine (Levothyroxine) 125 Mcg Tab 125 MCG PO DAILY Thyroid #30 Ref 0 TAB Quetiapine Fumarate (Quetiapine Fumarate ER) 150 Mg Tab Joao Burt MD R1 Jul 06, 2016 11:19 am
== END 2016-07-05 14:32 | disposition home or self-care (01) | DRG 312 ==
LOC: NEPC 09:04 → NEDA 12:29 → NEDH 15:53 → N06B 07-03 15:22
PROVIDERS: ADMIT Family Medicine; ATTEND Family Medicine
DX: I95.1 Orthostatic hypotension (principal); E87.2 Acidosis; F31.9 Bipolar disorder, unspecified; F43.10 Post-traumatic stress disorder, unspecified; R25.1 Tremor, unspecified; R06.02 Shortness of breath; F10.10 Alcohol abuse, uncomplicated; E03.9 Hypothyroidism, unspecified; D64.9 Anemia, unspecified; E87.6 Hypokalemia; Z87.891 Personal history of nicotine dependence; Y90.1 Blood alcohol level of 20-39 mg/100 ml
CPT/HCPCS: 36600; 71010; 71275; 80048; 80076; 80307; 80320; 80329; 81001; 82010; 82272; 82550; 82552; 82607; 82746; 82805; 83605; 83735; 83930; 84425; 84439; 84443; 84484; 85007; 85014; 85018; 85025; 85027; 85379; 93005; 93306; 93880; 96365; G0480; G0481; J1650; J2060; J3475; J3480; J7030; Q9967

== ENCOUNTER 2016-07-08 03:53 | Emergency (ER) | payer OTHER ==
[~2016-07-08 03:53] MED LIST changes: -ARTIDRO EACH EYE; +BENZ2TAB PO; -CLON1 PO; +CLON1TAB PO; -DULE100A INH; +FOLI1TAB4 PO; -GABA300C3 PO; +GABA400C5 PO; -KCL20 PO; +LEVO25TA4 PO; -MAGN400T PO; +MILK175C6; +OMEP20TA PO; -PRAV20TA PO; -PROT40TA PO; +QUET1TAB9 PO; -SERO300T PO; +SYNT112T PO; -SYNT125T PO; +THERTAB15 PO; -VENTAER INH; +VITA100T2 PO
[2016-07-08 04:06] VITALS: BP 122/80; PULSE 98; RESP 20; TEMP 98.3; O2SAT 96
[2016-07-08 05:05] LABS: AUTOMATED NEUTROPHIL # 3.7 TH/MM3 (1.8-7.7); BASOPHIL # 0.1 TH/MM3 (0-0.2); BASOPHIL % 1.1 % (0.0-2.0); EOSINOPHIL # 0.2 TH/MM3 (0-0.4); EOSINOPHIL % 1.9 % (0.0-4.0); HEMO FLAGS DIFF FINAL; LYMPH % 35.6 % (9.0-44.0); LYMPHOCYTE # 2.8 TH/MM3 (1.0-4.8); MEAN CORPUSCULAR HEMOGLOBIN 38.3 PG (27.0-34.0); MEAN CORPUSCULAR HGB CONC 35.2 % (32.0-36.0); MONO % 14.3 % (0.0-8.0); NEUT % 47.1 % (16.0-70.0); PLATELET COUNT 256 TH/MM3 (150-450); RED BLOOD COUNT 3.21 MIL/MM3 (4.50-5.90); RED CELL DISTRIBUTION WIDTH 16.4 % (11.6-17.2); WHITE BLOOD COUNT 7.8 TH/MM3 (4.0-11.0)
[2016-07-08 05:42] LABS: ALKALINE PHOSPHATASE 85 U/L (45-117); ALT (GPT) 91 U/L (12-78); ANION GAP 15 MEQ/L (5-15); AST (GOT) 121 U/L (15-37); BICARBONATE 19.2 MEQ/L (21.0-32.0); BLOOD UREA NITROGEN 14 MG/DL (7-18); CHLORIDE 106 MEQ/L (98-107); GLOMERULAR FILTRATION RATE 47 ML/MIN (>89); POTASSIUM 3.1 MEQ/L (3.5-5.1); SODIUM (NA) 140 MEQ/L (136-145)
[2016-07-08] MEDS ORDERED: POTASSIUM CHLORIDE 25 MEQ EFFERVESCENT TAB PO ONE (07:45)
--- NOTE | 2016-07-08 07:49 | PD ---
HPI Chief Complaint: Medical Clearance Time Seen by Provider: 07:44 Travel History International Travel<30 days: No Contact w/Intl Traveler<30days: No Traveled to known affect area: No History of Present Illness HPI 55-year-old male with history of recent admission for syncope and electrolyte abnormalities, tremors, presents to the ER today because he states that he started having his right leg tremors again which he states he was admitted for last time. He denies any dizziness, chest pains, trouble breathing, or any further syncopal episodes. He states he was concerned because it was a same thing that happened last time. Modifying Factors: None Associated Signs & Symptoms: Leg tremors Risk Factors: Recent admission, electrolyte abnormalities, syncope PFSH Past Medical History Asthma: Yes Bipolar Disorder: Yes Anxiety: Yes Depression: Yes Cancer: No Cardiovascular Problems: No High Cholesterol: Yes Diabetes: No Diminished Hearing: No Endocrine: Yes Genitourinary: No Immune Disorder: No Musculoskeletal: No Neurologic: No Psychiatric: Yes Reproductive: No Respiratory: Yes (ASTHMA) Migraines: No Seizures: Yes Thyroid Disease: Yes Past Surgical History Surgical History: No Previous Surgery Social History Alcohol Use: Yes (OCCASIONALLY ) Tobacco Use: No Substance Use: No Allergies-Medications (Allergen,Severity, Reaction): Coded Allergies: No Known Allergies (Unverified , 07/08/16) Reported Meds & Prescriptions Reported Meds & Active Scripts Active K-Tab (Potassium Chloride) 20 Meq Tab 20 Meq PO BID Vitamin B-1 (Thiamine HCl) 100 Mg Tab 100 Mg PO DAILY Quetiapine (Quetiapine Fumarate) 200 Mg Tab 200 Mg PO HS Thera/Beta-Carotene (Multiple Vitamin) 1 Tab Tab 1 Tab PO DAILY Synthroid (Levothyroxine Sodium) 112 Mcg Tab 112 Mcg PO DAILY@06 Folate (Folic Acid) 1 Mg Tab 1 Mg PO DAILY Reported Benztropine (Benztropine Mesylate) 2 Mg Tab 2 Mg PO HS Clonazepam 1 Mg Tab 1 Mg PO DAILY Milk Thistle 175 Mg Cap Gabapentin 400 Mg Cap 400 Cap PO TID Omeprazole 20 Mg Tab 20 Mg PO DAILY Review of Systems Except as stated in HPI: all other systems reviewed are Neg Physical Exam Narrative GENERAL: Well-nourished, well-developed middle age male patient in no acute distress. Awake and oriented 3. SKIN: Warm and dry. HEAD: Normocephalic. EYES: No scleral icterus. No injection or drainage. NECK: Supple, trachea midline. CARDIOVASCULAR: Regular rate and rhythm without murmurs, gallops, or rubs. RESPIRATORY: Breath sounds equal bilaterally. No accessory muscle use. GASTROINTESTINAL: Abdomen soft, non-tender, nondistended. MUSCULOSKELETAL: No cyanosis, or edema. BACK: Nontender without obvious deformity. No CVA tenderness. NEUROLOGICAL: Awake and alert. Cranial nerves II through XII intact. Motor and sensory grossly within normal limits. Five out of 5 muscle strength in all muscle groups. Normal speech. No pronator drift. EXTREMITIES: No clubbing, cyanosis, or edema. No joint tenderness, effusion, or edema noted. No calf tenderness. Data Data Last Documented VS Vital Signs Date Time Temp Pulse Resp B/P Pulse Ox O2 Delivery O2 Flow Rate FiO2 07/08/16 06:40 18 07/08/16 04:06 98.3 98 122/80 96 Room Air Orders Complete Blood Count With Diff (07/08/16 04:36) Comprehensive Metabolic Panel (07/08/16 04:36) Drug Screen, Random Urine (07/08/16 04:36) Alcohol (Ethanol) (07/08/16 04:36) Potassium Chloride Eff (K-Lyte Cl Eff) (07/08/16 07:45) Urinalysis - C+S If Indicated (07/08/16 08:56) Labs Laboratory Tests Test 07/08/16 07/08/16 04:53 08:55 White Blood Count 7.8 TH/MM3 Red Blood Count 3.21 MIL/MM3 Hemoglobin 12.3 GM/DL Hematocrit 35.0 % Mean Corpuscular Volume 109.0 FL Mean Corpuscular Hemoglobin 38.3 PG Mean Corpuscular Hemoglobin 35.2 % Concent Red Cell Distribution Width 16.4 % Platelet Count 256 TH/MM3 Mean Platelet Volume 7.9 FL Neutrophils (%) (Auto) 47.1 % Lymphocytes (%) (Auto) 35.6 % Monocytes (%) (Auto) 14.3 % Eosinophils (%) (Auto) 1.9 % Basophils (%) (Auto) 1.1 % Neutrophils # (Auto) 3.7 TH/MM3 Lymphocytes # (Auto) 2.8 TH/MM3 Monocytes # (Auto) 1.1 TH/MM3 Eosinophils # (Auto) 0.2 TH/MM3 Basophils # (Auto) 0.1 TH/MM3 CBC Comment DIFF FINAL Differential Comment Sodium Level 140 MEQ/L Potassium Level 3.1 MEQ/L Chloride Level 106 MEQ/L Carbon Dioxide Level 19.2 MEQ/L Anion Gap 15 MEQ/L Blood Urea Nitrogen 14 MG/DL Creatinine 1.54 MG/DL Estimat Glomerular Filtration 47 ML/MIN Rate Random Glucose 105 MG/DL Calcium Level 9.3 MG/DL Total Bilirubin 1.0 MG/DL Aspartate Amino Transf 121 U/L (AST/SGOT) Alanine Aminotransferase 91 U/L (ALT/SGPT) Alkaline Phosphatase 85 U/L Total Protein 7.4 GM/DL Albumin 3.7 GM/DL Ethyl Alcohol Level LESS THAN 3 MG/DL Urine Opiates Screen NEG Urine Barbiturates Screen NEG Urine Amphetamines Screen NEG Urine Benzodiazepines Screen POS Urine Cocaine Screen NEG Urine Cannabinoids Screen NEG MDM Medical Decision Making Medical Screen Exam Complete: Yes Emergency Medical Condition: Yes Medical Record Reviewed: Yes Interpretation(s) Laboratory Tests Test 07/08/16 07/08/16 04:53 08:55 Red Blood Count 3.21 MIL/MM3 (4.50-5.90) Hemoglobin 12.3 GM/DL (13.0-17.0) Hematocrit 35.0 % (39.0-51.0) Mean Corpuscular Volume 109.0 FL (80.0-100.0) Mean Corpuscular Hemoglobin 38.3 PG (27.0-34.0) Monocytes (%) (Auto) 14.3 % (0.0-8.0) Monocytes # (Auto) 1.1 TH/MM3 (0-0.9) Potassium Level 3.1 MEQ/L (3.5-5.1) Carbon Dioxide Level 19.2 MEQ/L (21.0-32.0) Creatinine 1.54 MG/DL (0.60-1.30) Estimat Glomerular Filtration 47 ML/MIN (>89) Rate Aspartate Amino Transf 121 U/L (15-37) (AST/SGOT) Alanine Aminotransferase 91 U/L (12-78) (ALT/SGPT) Urine Benzodiazepines Screen POS (NEG) Differential Diagnosis Leg tremorsessential tremors versus electrolyte abnormalities versus restless leg syndrome Narrative Course Lab work shows low potassium at potassium was given by mouth in the ER. Plan for discharge with potassium by mouth prescription. Follow-up with primary care physician. Return for any new issues as needed. The plan was discussed with the patient and he states understanding. Diagnosis Primary Impression: Hypokalemia Med/Other Pt SpecificInfo: Prescription(s) given Scripts Potassium Chloride ER (K-Tab)20 Meq Tab20 Meq PO BID #14 TAB Ref 0 Prov:Anna Medel MD 07/08/16 Disposition: 01 DISCHARGE HOME Condition: Stable Anna Medel MD Jul 08, 2016 07:49
[2016-07-08] MEDS ORDERED: POTA1TAB4 PO (09:33)
[2016-07-08 09:35] LABS: AMPHETAMINE, URINE NEG (NEG); BARBITURATES, URINE NEG (NEG); COCAINE, URINE NEG (NEG)
[2016-07-08 09:57] LABS: BACTERIA, URINE OCC /hpf; BLOOD, URINE TRACE (NEG); GLUCOSE,URINE TRACE mg/dL (NEG); GRANULAR CAST, URINE 25 /lpf; KETONE, URINE 10 mg/dL (NEG); MUCUS URINE MANY /lpf (OCC); NITRITE,URINE NEG (NEG); PH, URINE 5.5 (5.0-8.5); SQUAMOUS EPITHELIAL CELL URINE 2 /hpf (0-5)
[2016-07-08 10:00] LABS: URINE COLOR DARK-BROWN (YELLW/STRAW)
[2016-07-08 10:01] LABS: COMMENT (UR) CULTURE INDICATED; CULTURE IF INDICATED CULTURE INDICATED
[2016-07-08] MEDS ORDERED: BACT800T5 PO (10:41)
[2016-07-08] MEDS ORDERED: SULFAMETHOXAZOLE-TRIMETHOPRIM DS 800-160 MG TAB PO ONE (10:45)
[2016-07-08 11:05] VITALS: BP 142/89
== END 2016-07-08 11:11 | disposition home or self-care (01) ==
LOC: NEPE 03:53
DX: E87.6 Hypokalemia (principal); N39.0 Urinary tract infection, site not specified; R82.90 Unspecified abnormal findings in urine; R25.1 Tremor, unspecified; E78.00 Pure hypercholesterolemia, unspecified
CPT/HCPCS: 80053; 80307; 80320; 81001; 85025; 87086; 99283